=== PATIENT | male | born 1950 | race American Indian/Alaskan Native ===

== ENCOUNTER 2024-03-30 21:23 | Inpatient (IN) | payer BC, SELFPAY ==
[2024-03-30] VITALS (8 sets, daily range): BP systolic 125–155; BP diastolic 59–91; BMI 25.3; BMI 24.6
[2024-03-30 15:59] LABS: % Basophils 0.4 % (0-2); % Eosinophils 0.3 % (0-6); % Immature Granulocytes 0.2 % (0-0.5); % Lymphocytes 5.3 % (20.5-51.1); % Monocytes 2.4 % (1.7-9.3); % Neutrophils 91.4 % (42.2-75.2); Absolute Basophils 0.1 10^3/uL (0-0.2); Absolute Lymphocytes 0.7 10^3/uL (1.2-3.4); Absolute Monocytes 0.3 10^3/uL (0.1-0.6); Absolute Neutrophils 12.5 10^3/uL (1.4-6.5); Hematocrit 41.4 % (39.0-52.0); Hemoglobin 12.9 g/dL (13.0-18.0); Mean Corp Hgb Conc. 31.2 g/dL (33.0-37.0); Mean Corpuscular Hgb 26.2 pg (27.0-31.0); Mean Platelet Volume 9.7 fL (7.4-10.4); Nucleated Red Blood Cells % 0 % (-); Platelet Count 344 10^3/uL (130-400); Red Blood Cell Count 4.93 10^6/uL (4.70-6.10); White Blood Cell Count 13.6 10^3/uL (4.8-10.8)
[2024-03-30 16:32] LABS: ALT (SGPT) 21 U/L (0-50); AST (SGOT) 28 U/L (17-59); Albumin 4.2 g/dl (3.5-5.0); Alkaline Phosphatase 78 U/L (38-126); Blood Urea Nitrogen 20 mg/dl (9-20); Calcium 9.5 mg/dl (8.4-10.2); Carbon Dioxide 27 mmol/L (22-30); Chloride 100 mmol/L (98-107); Glucose 172 mg/dl (70-99); Potassium 4.1 mmol/L (3.5-5.1); Sodium 138 mmol/L (135-145); Total Bilirubin 0.4 mg/dl (0.2-1.3); Total Protein 8.6 g/dl (6.3-8.2); eGFR > 60.00
--- NOTE | 2024-03-30 17:22 | ED.GENMED ---
History of Present Illness
General
Chief Complaint: Breathing Problem
Source: patient and family
Exam Limitations: none
Time Seen by Provider: 03/30/24 16:59
Nursing documentation reviewed up to this point in time: agreed with
History of Present Illness
History of Present Illness:
Pleasant 73-year-old male presents with acute on chronic lung issues. On , he stated that he felt feverish with chills. 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
because he was too weak. He went to [facility] to get x-rays and blood work but left frustrated with neither. They were unable to accommodate him. Monday night they went to a green party but had to leave early because patient was
having difficulty walking. Patient follows with [facility] pulmonology who suspects that he had an asbestos exposure resulting in left-sided pulmonary issues. He is on an oxygen concentrator at night, that he paid $3500 for
[id number] when he was unable to get a prescription from his physicians. Patient was started on Levaquin. He has increased his oxygen concentrator to 4 L in an attempt to help with his breathing. He does report having a productive cough.
Patient denies chest pain or shortness of breath while at rest.
Vital signs are stable. Patient not hypoxic
Nursing note reviewed. I agree with nursing documentation up to this point in time.
Home Meds and allergies reviewed.
NUMBER AND COMPLEXITY OF PROBLEMS ADDRESSED AT THE ENCOUNTER
� Chronic conditions affecting care: Left-sided chronic lung disease
� Acute Exacerbation and/or Progression of Chronic Illness: Exacerbation of lung disease
� Differential Diagnosis includes: Pneumonia, pulmonary embolus, CHF exacerbation
AMOUNT AND/OR COMPLEXITY OF DATA TO BE REVIEWED AND ANALYZED
I performed an independent evaluation of the following and my interpretation is:
EKG:
CT:
X-rays: Similar in appearance to previous x-ray from 2013. Left-sided chronic changes.
Ultrasound:
Laboratory Studies: 13.6 white blood cell count.
Other:
Review of other/old records: Outpatient discharge packet from 10/09/2012
Clinical information was obtained by an independent historian:
Prescriptions/Medications Considered but not given:
Further testing considered but not performed:
RISK OF COMPLICATIONS AND/OR MORBIDITY OR MORTALITY OF PATIENT MANAGEMENT
Social determinants of health affecting care: Good Social Support present at the bedside
Discussion with other providers:
Escalation of care including admission/observation vs risk of discharge considered:
CRITICAL CARE NOTE:
Total Time (exclusive of procedures):
Update:
Past History
Past History
ED Past Medical History: Asthma and HTN
ED Past Surgical History: None
Social History
Tobacco: Non-smoker
Personal:
Living: with family
Employment: Employed
Family History
Family History: Negative Early CAD
Phy Exam
General Physical Exam
General Presentation: well appearing and no apparent distress
General Skin: warm and dry
General Habitus: normal
General Mental: alert
General Hydration: appears well hydrated
ENT Exam
ENT Exam: EOMI, pharynx normal, neck supple and normocephalic
Eye Exam
Eye Exam: PERRL, cornea clear and conjunctiva normal
Cardiovascular Exam
Cardiovascular Exam: regular rate/rhythm, no edema, no murmur and normal peripheral pulses
Pulmonary Exam
Pulmonary Exam: lungs clear, no rales, no crackles, no rhonchi, no stridor, no cough, generalized wheezing and respiratory distress
Oxygen Status: oxygen 4 liters via NC
Gastrointestinal Exam
Gastrointestinal Exam: normal bowel sounds, non tender, soft, no organomegaly, no pulsatile mass and non distended
Neurological Exam
Neurological Exam: alert, oriented x3, no motor deficits and speech normal
Musculoskeletal Exam
Musculoskeletal Exam: full ROM and no edema
Skin Exam
Skin Exam: normal color, warm/dry, no rash and no petechia
Psychiatric Exam
Psychiatric Exam: normal mood/affect
Scores
Heart Failure Risk
Heart Failure Risk Score: Not Applicable
Course
Orders/Labs/Results
Orders:
Orders
03/30/24 Breakfast
Regular
At Your Request: Full Participation
03/30/24 15:37
Chest [CR Chest - 2 Views ] Urgent
Comment:
Reason For Exam: shortness of breath
03/30/24 15:52
CMP [Comprehensive Metabolic Panel] Urgent
Complete Blood Count/With Diff Urgent
Glycohemoglobin (HgbA1c) Urgent
NT-proBNP Urgent
Comment: ADD ON- ON SERUM
03/30/24 17:23
Add On- LAB Urgent
Tests Added?: pro-bnp
03/30/24 17:36
Cardiac Monitoring- Treatment ONCE
EKG- Treatment ONCE
03/30/24 17:45
Electrocardiogram (*1) Q3H
Reason for Study: Chest Pain
03/30/24 18:00
Magnesium Urgent
PTT Urgent
Prothrombin Time Urgent
TSH Urgent
Troponin I Q3H
03/30/24 19:04
CT Chest Pe Study Urgent
Comment:
Reason For Exam: dyspnea, hx of asbestosis
03/30/24 19:57
Azithromycin 500 mg/250 ml [Zithromax Infusion] 500 mg in 250 ml IV NOW
CefTRIAXone [Rocephin] 1,000 mg IV NOW STA
03/30/24 20:12
Lactic Acid Q4H
Comment: CANCEL 2nd LACTIC ACID IF 1st LACTIC ACID IS LESS THAN 2
Procalcitonin Urgent
PCT Algorithmm Indication: Respiratory
Troponin I Q3H
Blood Culture Q30M
JARRETT Source: Blood/Venous
Specimen Description:
Blood Culture Q30M
JARRETT Source: Blood/Venous
Specimen Description:
03/30/24 20:19
Sterile Water [Sterile Water For Injection] 10 ml .ROUTE .[facility]
03/30/24 20:45
Electrocardiogram (*1) Q3H
Reason for Study: Chest Pain
03/30/24 21:02
Admit/Transfer Patient As Directed
Co-Sign Provider:
Level of Care: Inpatient admission
Assign to:: Medical/Surgical
Physician / Group: [facility]
Diagnosis: Bronchitis / Bronchiectasis
Reason for Hospitalization: Bronchitis / Bronchiectasis
Expected length of stay greater than two midnights?: Yes
ELOS- Estimated Length of Stay in days: 2
I certify the patient meets the requirements for IP care: Yes
03/30/24 21:05
Code Status As Directed
Resuscitation Status: Full Code
03/30/24 22:14
Acetaminophen [Tylenol] 650 mg PO Q4HPRN PRN
Albuterol Nebs [Ventolin Nebules] 2.5 mg INH R Q4HPRN PRN
03/30/24 22:14
Activity As Directed
Activity Level: Ambulate
With Assistance
Bladder Scan As Directed
Follow Bladder Retention/Intermittent Cath Algorithm?: Yes
PRN if no void in __ hours: 6
Frequency: Per Retention Algorithm
If Bladder Scan Result >: 400
then:: Straight cath
I/O [Intake/ Output] As Directed
Frequency: Per unit guidelines
Straight Cath As Directed
Frequency: Per Retention Algorithm
Additional Instructions: straight cath as needed per acute urinary retention algorithm for 24 hrs
Additional Instructions: for bladder scan greater than 400 mL
Vital Signs As Directed
Frequency: Per unit guidelines
Weight As Directed
Frequency: Daily
Chest PT [Rx Chest Pt] [RESP] Routine
Special Instructions: BID
Oxygen Therapy [O2 Therapy] [RESP] Routine
Titrate/Wean O2 to maintain O2 sat greater than (%): 94
DX Deep Vein Thrombosis Video Routine
03/31/24 00:00
Dexamethasone Sod Phosphate [Decadron] 4 mg IV Q8
LevoFLOXacin 750 MG/150 ML [Levaquin] 750 mg in 150 ml IV Q24H
03/31/24 06:00
Basic Metabolic Panel IN AM
Complete Blood Count/No Diff IN AM
03/31/24 08:00
Ascorbic Acid [Vitamin C] 250 mg PO DAILY
Cetirizine HCl [Zyrtec] 10 mg PO DAILY
Hydrochlorothiazide [Oretic] 25 mg PO DAILY
Ipratropium/Albuterol Sulfate [Duoneb] 3 ml INH R QID
Valsartan [Diovan] 320 mg PO DAILY
mometasone 1 spray NASAL BID
03/31/24 18:00
Enoxaparin Sodium [Lovenox] 40 mg SC QPM
Montelukast Sodium [Singulair] 10 mg PO QPM
Abnormal Lab Results
03/30/24 03/30/24
15:52 18:00
WBC 13.6 H 10^3/uL
(4.8-10.8)
Hgb 12.9 L g/dL
(13.0-18.0)
MCH 26.2 L pg
(27.0-31.0)
MCHC 31.2 L g/dL
(33.0-37.0)
RDW 15.0 H %
(11.5-14.5)
Absolute Neuts (auto) 12.5 H 10^3/uL
(1.4-6.5)
Absolute Lymphs (auto) 0.7 L 10^3/uL
(1.2-3.4)
Neutrophils % 91.4 H %
(42.2-75.2)
Lymphocytes % 5.3 L %
(20.5-51.1)
APTT 37.9 H Sec
(23.4-35.0)
Glucose 172 H mg/dl
(70-99)
Total Protein 8.6 H g/dl
(6.3-8.2)
03/30/24 15:52
03/30/24 15:52
Vital Signs
Initial and Last Documented VS:
Initial Vital Signs
Temp Pulse Resp BP Pulse Ox
97.9 F 111 18 153/83 95
03/30/24 15:24 03/30/24 15:24 03/30/24 15:24 03/30/24 15:24 03/30/24 15:24
Last Documented Vital Signs
Temp Pulse Resp BP Pulse Ox
98.3 F 94 20 154/91 98
03/30/24 22:15 03/30/24 22:15 03/30/24 22:15 03/30/24 22:15 03/30/24 23:00
*Radiology
Radiology exam reviewed: radiology read reviewed
*EKG
Interpreted by ED Provider?: Yes
EKG Intrepretation Date: 03/30/24
Interpretation: normal
Rate: normal
Rhythm: sinus and sinus arrhythmia
Logan: normal axis
QRS Pattern: normal QRS
Ischemia: no ischemia
*Human Resources Operations Specialist Interpretation
Rate: normal
Interpretation: normal
*Critical Care Note
Total Time (30-74mins, 75-104mins- exclusive of procedures): Not Applicable
ED Attending Note
-
Portions of this chart may have been created with voice recognition software.� Occasional wrong word or��sound alike� substitutions may have occurred due to the inherent limitations of voice recognition software.
Discharge Plan
Departure
Patient Disposition: Admit
Date of Disposition: 03/30/24
Time of Disposition: 20:02
Admit to: Telemetry
Presentation/result/management discussed w/ accepting MD/DO: Hospitalist
Condition: Good
Discharge Problem:
Acute dyspnea, Pneumonia
Interventions
Interventions:
*Risk Screen - Suicide Last Done: 03/30/24 17:33
*General Assessment Last Done: 03/30/24 17:33
*Neglect/Abuse Screening Last Done: 03/30/24 17:33
ED- Fall Risk Assessment Last Done: 03/30/24 17:33
*ED COVID-19 Vaccine History Last Done: 03/30/24 17:33
*Nursing Disposition Last Done: 03/30/24 22:04
ED- Cardiac Assessment Last Done: 03/30/24 17:33
ED- Pulmonary Assessment Last Done: 03/30/24 17:33
Discharge Date and Time
Discharge Date/Time: 03/30/24 22:05
[2024-03-30 18:20] LABS: INR 1.12; PT 14.2 Sec (11.4-14.6)
[2024-03-30 18:21] LABS: APTT 37.9 Sec (23.4-35.0)
[2024-03-30 18:33] LABS: Troponin I < 0.012 ng/ml
[2024-03-30 18:51] LABS: TSH 0.55 uIU/ml (0.47-4.68)
[2024-03-30] MEDS: ROCEPHIN 1000 MG IV (20:23)
[2024-03-30] MEDS: ZITHROMAX INFUSION 250 IV (20:29)
[2024-03-30 20:48] LABS: Troponin I < 0.012 ng/ml
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
[2024-03-30 21:15] LABS: Procalcitonin < 0.05 ng/ml (0.0-0.25)
[2024-03-30] MEDS: DECADRON 4 MG IV (22:59)
[2024-03-30] MEDS: LEVAQUIN 150 IV (23:04)
--- NOTE | 2024-03-30 23:30 | PTCARENOTE ---
pt arrived from ed walked into room, came up on 2 L NC. wears only at HS. pt aaox3, VSS, see MAR and assessment for further details. call garcia within reach.
[2024-03-31] MEDS: VENTOLIN NEBULES 2.5 MG INH (02:18)
[2024-03-31 06:00] VITALS: BMI 24.6
[2024-03-31 06:41] LABS: Hemoglobin 12.2 g/dL (13.0-18.0); Mean Corp Hgb Conc. 32.1 g/dL (33.0-37.0); Mean Corpuscular Hgb 26.2 pg (27.0-31.0); Mean Corpuscular Volume 81.7 fL (80.0-94.0); Mean Platelet Volume 9.5 fL (7.4-10.4); Platelet Count 356 10^3/uL (130-400); Red Blood Cell Count 4.65 10^6/uL (4.70-6.10); Red Cell Dist. Width 15.1 % (11.5-14.5); White Blood Cell Count 8.6 10^3/uL (4.8-10.8)
[2024-03-31 07:00] VITALS: BP 128/71
[2024-03-31 07:11] LABS: Blood Urea Nitrogen 16 mg/dl (9-20); Calcium 9.3 mg/dl (8.4-10.2); Carbon Dioxide 32 mmol/L (22-30); Chloride 100 mmol/L (98-107); Estimated Creatinine Clearance 80 ml/min; Glucose 128 mg/dl (70-99); Potassium 4.6 mmol/L (3.5-5.1); Sodium 141 mmol/L (135-145); eGFR > 60.00
[2024-03-31] MEDS: DUONEB 3 ML INH ×4 (07:34→20:35)
--- NOTE | 2024-03-31 08:09 | W.PN.HOSP.TC ---
Today's Communication/Plan
-
see bold
Assessment / Plan
Assessment / Plan
73y M with PMH significant for chronic lung disease who presents to ED complaining of worsening cough, dyspnea and subjective fevers / chills.
Gen: NAD, AAOx3.
Eyes: EOMI, PERRLA, no scleral icterus.
Neck: supple.
CV: RRR, +S1/S2, no m/r/g.
Resp: Bilateral wheezes and faint Velcro rales
Abd: +BS, soft, NT, ND
Skin: No rashes.
Neuro: CN 2-12 intact, non-focal.
Psych: Normal mood and affect.
CTA chest: No evidence of central pulmonary embolism. Unfortunately, small bilateral peripheral lower lobe pulmonary emboli cannot be excluded on the basis of this study at least in part due to the prominent interstitial changes described below.
Calcified pleural plaques again seen with some progression in comparison to relative remote prior study. Significant progression of predominantly widespread bilateral prominent interstitial markings in comparison to relative remote prior study.
Unfortunately, chronic interstitial changes cannot be differentiated from acute upon chronic interstitial changes.
Opacity in the right lower lobe and larger opacity in the left lower lobe which could represent atelectasis, cannot exclude pneumonia, particularly in the left lower lobe.
Acute Bronchitis / Bronchiectasis
Acute Exacerbation of Allergic Asthma
Asbestosis
Pulmonary Nodules
Interstitial Lung Disease
-CT chest above and notable for interstitial changes
-stop levofloxacin with NEG Procal (resume home Azithro M/W/F)
-symptoms do seem to have been triggered by mulch exposure based on patient history
-IV Decadron
-Nebs ATC and PRN.
-Continue Singulair and Zyrtec.
-c/s pulm
Essential Hypertension: cont ARB/HCTZ
FULL/Lovenox
Anticipated Discharge: 24 - 48 hours
Subjective/Interval History
-
Date of Service: March 31, 2024
Objective Data
-
Labs:
Laboratory Results
03/31/24
06:20
WBC 8.6
Hgb 12.2 L
Hct 38.0 L
Plt Count 356
Sodium 141
Potassium 4.6
Chloride 100
Carbon Dioxide 32 H
BUN 16
Creatinine 0.8
Glucose 128 H
Calcium 9.3
Vital Signs:
Vital Signs
Temp Pulse Resp BP Pulse Ox
97.7 F 80 18 128/71 99
03/31/24 07:00 03/31/24 07:40 03/31/24 07:40 03/31/24 07:00 03/31/24 07:40
I&O
03/30/24 03/31/24 04/01/24
06:59 06:59 06:59
Intake Total 480 / 480
Balance 480 / 480
[2024-03-31] MEDS: DIOVAN 320 MG PO (08:32)
[2024-03-31] MEDS: ZYRTEC 10 MG PO (08:33)
[2024-03-31] MEDS: ORETIC 25 MG PO (08:33)
[2024-03-31] MEDS: DECADRON 4 MG IV ×2 (08:34→17:08)
[2024-03-31] MEDS: FLUSH (NSS) 2 FLUSH IV (08:35)
[2024-03-31] MEDS: VITAMIN C 250 MG PO (09:00)
[2024-03-31 11:24] LABS: Glycohemoglobin (HgbA1c) 6.3 % (4.0-5.6)
--- NOTE | 2024-03-31 11:47 | CON.PUL ---
Consultation
Consultation Request
Date/Time Consultation Requested: 03/31/24
Date/Time Consultation Performed: 03/31/24
Performing Provider: Jacobo
Reason for Consultation: Bronchiectasis
Medical History
-
History of Present Illness:
Patient is a 73 year old M with PMH significant for bronchiectasis, asbestosis and chronic allergies/asthma who presents to ED complaining of worsening cough, SOB and chills x several days. Patient states that he is followed by [facility]
and by Allergy / Immunology. He was started on oral prednisone 10mg per day about 3 weeks ago for symptoms of allergies / asthma. He notes worsening cough, SOB than baseline. Patient contacted his Multi Slide Machine Tender and was prescribed levofloxacin
750mg daily as well as inhaled tobramycin (tobra was not started yet).
No prior records of recent imaging at . Last CT from 2009 in which he underwent bronchoscopy without infection.
Patient has home O2 concentrator and wears oxygen 2 lpm at night, only.
Past Medical History
Past Medical History: Other (see list below)
Social History
Tobacco: Non-smoker
Alcohol: None
Drug: None
Family History
Family History: Reviewed & Not Pertinent
Allergies / Home Medications
Allergies
Allergy/AdvReac Type Severity Reaction Status Date / Time
Penicillins Allergy Hives Verified 12/14/12 11:05
Sulfa (Sulfonamide Allergy Hives Verified 12/14/12 11:05
Antibiotics)
Home Medications
�Medication �Instructions �Recorded �Confirmed �Last Taken �Type
montelukast 10 mg tablet 10 mg PO QPM Lung/Breathing Issues 12/22/09 03/30/24 12/13/12 History
multivitamin with folic acid 400 1 tab PO HS Supplement 12/22/09 03/30/24 12/13/12 History
mcg tablet (Tab-A-Sabine)
albuterol sulfate 2.5 mg/3 mL 2.5 mg inhalation BID 03/30/24 03/30/24 Unknown History
(0.083 %) solution for nebulization Lung/Breathing Issues
ascorbic acid (vitamin C) 250 mg 250 mg PO DAILY Supplement 03/30/24 03/30/24 Unknown History
tablet (Vitamin C)
azithromycin 250 mg tablet 250 mg PO MOWEFR Infection 03/30/24 03/30/24 Unknown History
calcium acetate(phosphat bind) 667 667 mg PO DAILY Kidney Disease 03/30/24 03/30/24 Unknown History
mg tablet
cetirizine 10 mg tablet 10 mg PO DAILY Allergies 03/30/24 03/30/24 Unknown History
cholecalciferol (vitamin D3) 125 125 mcg PO DAILY Supplement 03/30/24 03/30/24 Unknown History
mcg (5,000 unit) capsule
fluticasone propionate 230 2 puff inhalation BID 03/30/24 03/30/24 Unknown History
mcg-salmeterol 21 mcg/actuation Lung/Breathing Issues
HFA inhaler (Advair HFA)
hydrochlorothiazide 25 mg tablet 25 mg PO DAILY Blood Pressure 03/30/24 03/30/24 Unknown History
levofloxacin 750 mg tablet 750 mg PO DAILY Infection 03/30/24 03/30/24 Unknown History
mometasone 50 mcg/actuation nasal 1 spray intranasal BID Allergies 03/30/24 03/30/24 Unknown History
spray
omega-3 acid ethyl esters 1 gram 1 cap PO DAILY Heart 03/30/24 03/30/24 Unknown History
capsule (Lovaza) Disease/Condition
omeprazole 20 mg tablet,delayed 20 mg PO DAILY PRN GERD 03/30/24 03/30/24 Unknown History
release
prednisone 10 mg tablet 10 mg PO DAILY Anti-Inflammatory 03/30/24 03/30/24 Unknown History
tobramycin 1 spray intranasal BID Infection 03/30/24 03/30/24 Unknown History
valsartan 320 mg tablet 320 mg PO DAILY Blood Pressure 03/30/24 03/30/24 Unknown History
Review of Systems
-
History Source: Patient
All other systems: Negative unless noted
Vitals / Labs / Diagnostic Testing
Vital Signs
Temp Pulse Resp BP Pulse Ox
97.7 F 82 18 128/71 94
03/31/24 07:00 03/31/24 11:24 03/31/24 11:24 03/31/24 08:33 03/31/24 08:34
Lab Data
03/31/24 06:20
03/31/24 06:20
Laboratory Results
03/30/24
18:00
PT 14.2
INR 1.12
APTT 37.9 H
Diagnostic Testing:
Physical Exam
-
HEENT: Normocephalic, Anicteric and Moist Mucous Membranes
Cardiovascular: S1/S2 and Regular Rhythm
Respiratory: Rales and Non-Labored Respirations
GI: Soft, Non Distended and Non Tender
Neurology: Awake, Alert, Oriented, AO x 3 and No Motor Deficits
Skin: Warm, Dry and Good Color
General: Comfortable and Other (NAD)
Assessment
-
Patient is a 73 year old M with PMH significant for bronchiectasis, asbestosis and chronic allergies/asthma who presents to ED complaining of worsening cough, SOB and chills x several days. He was started on oral prednisone 10mg per day about 3
weeks ago for symptoms of allergies / asthma. He notes worsening cough, SOB than baseline. Patient contacted his Multi Slide Machine Tender and was prescribed levofloxacin 750mg daily as well as inhaled tobramycin (tobra was not started yet). CT showing
diffuse patchy infiltrates, TIB pattern. We are consulted for eval.
Abnormal CT scan
Acute on chronic SOB/cough
Mild leukocytosis
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
Chronic cough
Pleural plaque, asbestosis
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
Atelectasis s/p bronchoscopy 12/23/09: BAL was performed in RLL, negative cultures/+ rosalind
Neg for acid fast x 2
Chronic asthma, follows with Dr Elizabeth
Allergic rhinitis
Elevated immunoglobulin E
History of prostate carcinoma with radiation seeds
Plan
Hypoxemia noted on arrival, O2 dwight 89%, placed on O2
Patient has home O2 concentrator and wears oxygen 2 lpm at night, only--recommend outpatient sleep study
Home O2 evaluation eventually
Prior history of lung disease is noted including bronchiectasis, asthma/allergies
No prior records of recent imaging at . Last CT from 2009 in which he underwent bronchoscopy without infection.
Suspect patient has mucus impaction but unclear if there is infection
Had bronchoscopy for similar in 2009 which showed negative cultures
procal and proBNP negative
CXR/CT on this admission reviewed, but no recent comparisons available at [place]
We will request records
Difficult to determine chronicity of CT findings without recent imaging
For now, can obtain sputum culture
He is placed on IV steroids and azithro
Consideration for bronch but depending on records/what has been done at [place]
No prior ECHO records are available for review
Can resume home inhalers/nebs
Currently on vest BID
Will add acapella, Mucinex
Airway clearance reviewed
We will follow
Diagnostic Data
Chest X-Ray:
CT Scan:
CT Chest 03/30/24- No evidence of central pulmonary embolism. Unfortunately, small bilateral peripheral lower lobe pulmonary emboli cannot be excluded on the basis of this study at least in part due to the prominent interstitial changes described
below.
Calcified pleural plaques again seen with some progression in comparison to relative remote prior study.
Significant progression of predominantly widespread bilateral prominent interstitial markings in comparison to relative remote prior study. Unfortunately, chronic interstitial changes cannot be differentiated from acute upon chronic interstitial
changes.
Opacity in the right lower lobe and larger opacity in the left lower lobe which could represent atelectasis, cannot exclude pneumonia, particularly in the left lower lobe.
CT Chest 07/15/10- Impression: Slight improvement in aeration of the lung bases as described, incomplete clearing however.
Pleural calcifications with pleural thickening in the left lung base is similar to the previous exam, likely related to prior previous asbestos exposure. Minimal fatty infiltration of the liver.
CT Chest 12/28/09- Impression: No significant change in poorly defined mass-like opacity in the right lower lobe. This could represent a pulmonary malignancy. Consider PET/CT for additional evaluation. Pleural calcifications as described. There is
pleural thickening in the left base. Evidence for rounded atelectasis in the left lower lobe. These findings are likely related to previous asbestos exposure.
CT chest 12/22/09- The left hemithorax pleural plaques appear stable from prior examination. In the posteromedial base of the left lower lobe, there is a lobulated focus of increased density, measuring approximately 2.0 x 1.0 cm, and appears new
from prior examination. This may represent slight progression of pleuroparenchymal scarring, but a small focus of acute pneumonitis at this location is also possible. There is also a rounded area of parenchymal disease more superiorly in the
medial aspect of the left lower lobe, and could represent focal pneumonitis or atelectasis.
Of note, the consolidative airspace density in the right lower lobe is new from prior examination and is likely pneumonia. Given this right lower lobe finding, at least a portion of the findings in the left base that are new are probably from a
component of acute pneumonitis in the left lower lobe.
Of note, there is a small calcified pleural plaque in the posteromedial right lower lobe, which I did not initially appreciate. With bilateral calcified pleural plaques, the possibility of asbestos exposure is still entertained.
Echo:
PFT's:
Reports and relevant images were personally reviewed.
Total time spent on this consultation __75__ includes review of history, physical exam, medications, laboratory data, personal review of imaging, extensive review of outpatient records, discussion with care team and respiratory therapy.
--- NOTE | 2024-03-31 13:17 | PTCARENOTE ---
patient with +sob with exertion, since patient increasing ambulation coughing more and able to expectorate thick white sputum. eating well, vss, will continue to monitor.
[2024-03-31 15:00] VITALS: BP 108/68
--- NOTE | 2024-03-31 16:25 | CM ---
Reviewed chart. Spoke with patient to obtain information for assessment. Patient stated that he lives with his in a two story home with one step to enter. He described himself as independent with his ADLs and personal care as well as dressing
and bathing. He ambulates without device. 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 He drives and can get to all of his appointments.
He wears o2 at night. He stated that his o2 has not been working.
He had VN 3 years ago but does not recall the agency.
He has never been to a SNF.
Patient has a prescription plan and uses, [facility] for all of his medications.
His PCP is, Joel Juárez.
Patient does not feel that he will have any needs for CM dept upon discharge .
Plan: Case management will continue to follow and assist with discharge planning. Patient would like to return home with his when medically cleared. Will need to explore o2 needs.
[2024-03-31] MEDS: SINGULAIR 10 MG PO (17:07)
[2024-03-31] MEDS: MUCINEX 1200 MG PO (20:57)
[2024-03-31] MEDS: PROTONIX 40 MG PO (21:31)
[2024-03-31 22:24] VITALS: BP 124/68
[2024-04-01] MEDS: DECADRON 4 MG IV ×4 (00:07→23:09)
[2024-04-01] MEDS: FLUSH (NSS) 2 FLUSH IV (00:08)
[2024-04-01] MEDS: TESSALON PERLES 200 MG PO (03:04)
[2024-04-01 06:00] VITALS: BMI 25.0
[2024-04-01] MEDS: ANESTHETIC LOZENGE 1 LOZENGE PO (06:04)
[2024-04-01 07:00] VITALS: BP 125/65
[2024-04-01] MEDS: DUONEB 3 ML INH ×3 (07:29→15:49)
[2024-04-01] MEDS: MUCINEX 1200 MG PO ×2 (08:10→22:09)
[2024-04-01] MEDS: VITAMIN C 250 MG PO (08:14)
[2024-04-01] MEDS: ZYRTEC 10 MG PO (08:14)
[2024-04-01] MEDS: DIOVAN 320 MG PO (08:14)
[2024-04-01] MEDS: ORETIC 25 MG PO (08:14)
[2024-04-01] MEDS: ZITHROMAX 250 MG PO (08:15)
--- NOTE | 2024-04-01 10:47 | CM ---
Pt is on oxygen 3 liter Pox 100%.
Spoke with Loyd [phone] . She said that she did not want VN for .
said they bought a Inogen from [employer] [phone] and it is broken . Call [facility] spoke with Myesha asked her to call and get a replacement sent to him.
Will need a Home oxygen test.
At this time he only uses oxygen at night.
PLAN Home no needs Watch for oxygen needs .
--- NOTE | 2024-04-01 12:23 | W.PN.PUL3 ---
Today's Communication / Plan
-
Start antibiotics with aztreonam + doxycycline
Check infectious workup
Pulmonary toilet
Up OOB as tolerated
Obtain outpatient medical records from [place]
Patient with follow-up with pulmonary + ENT at [place] once he is discharged
Ambulatory pulse oximetry prior to discharge
Assessment
-
Patient is a 73 year old M with PMH significant for bronchiectasis, asbestosis and chronic allergies/asthma who presents to ED complaining of worsening cough, SOB and chills x several days. He was started on oral prednisone 10mg per day about 3
weeks ago for symptoms of allergies / asthma. He notes worsening cough, SOB than baseline. Patient contacted his Water Plant Pump Operator and was prescribed levofloxacin 750mg daily as well as inhaled tobramycin (tobra was not started yet). CT showing
diffuse patchy infiltrates, TIB pattern. We are consulted for eval.
Impression:
Abnormal CT scan with multifocal tree-in-bud nodular opacities and consolidation in the posterolateral RUL + LLL with mucoid impaction as well in the bilateral lower lobes due to multifocal CAP
Acute respiratory failure with hypoxia due to above
Acute on chronic SOB/cough
Mild leukocytosis
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
Chronic cough
Pulmonary bronchiectasis who follows with pulmonary at [facility]
Pleural plaque due to asbestos exposure
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
Atelectasis s/p bronchoscopy 12/23/09: BAL was performed in RLL, negative cultures/+ rosalind
Neg for acid fast x 2
Chronic asthma, follows with Dr Elizabeth
Allergic rhinitis
Elevated immunoglobulin E
Chronic rhinitis follows with ENT at [place] (Dr. Spicer)
History of prostate carcinoma with radiation seeds
Plan
Hypoxemia noted on arrival, O2 dwight 89%, placed on O2
Titrate O2 dose to maintain SpO2 >90-94%
Patient has home O2 concentrator and wears oxygen 2 lpm at night only--recommend outpatient sleep study
Home O2 evaluation eventually prior to discharge
Prior history of lung disease is noted including bronchiectasis, asthma/allergies
No prior records of recent imaging at since 2011. Last CT from 2009 in which he underwent bronchoscopy without infection.
Patient has lower lobe predominant mucus impaction and given the multifocal tree-in-bud nodular opacities with dyspnea on exertion and productive cough, he clinically has pneumonia
Had bronchoscopy in 2009 which showed negative cultures
procal and proBNP negative
CXR/CT on this admission reviewed, but no recent comparisons available at [place]
We will request records
Difficult to determine chronicity of CT findings without recent imaging
Will treat for acute CAP --> he has already received ceftriaxone x 1 day, azithromycin X 2 days and Levaquin X 2 days --> considering patient has had a reaction of keloids + hives to penicillin, I will start Aztreonam and doxycycline --> plan for
7-10 days total; hold zithromax TIW for now until doxy has completed, then ok to restart
Follow-up sputum culture and blood cultures; check urine antigens for Legionella and strep pneumonia
He is on IV steroids with Decadron 4 mg IV q8hr --> wean as tolerated
Consideration for bronch but depending on records/what has been done at [place] --> for now patient is doing well, is stable with his degree of shortness of breath, and with improving levels of oxygen requirements, hence there is no indication
currently for bronchoscopy
No prior ECHO records are available for review
Resume home inhalers/nebs
Currently on vest BID
Continue acapella, Mucinex
Airway clearance reviewed
We will follow
Total time spent today was 35 minutes for this encounter. Time includes reviewing laboratory test/imaging results, reviewing pertinent medical records, obtaining and reviewing medical history, performing an appropriate exam, ordering medications,
tests and procedures. Time also includes documentation of this encounter, coordinating patient care and communicating with other healthcare professionals. Total time does not include separately billed tests performed on this date of service.
Diagnostic Data
Chest X-Ray:
CT Scan:
CT Chest 03/30/24- No evidence of central pulmonary embolism. Unfortunately, small bilateral peripheral lower lobe pulmonary emboli cannot be excluded on the basis of this study at least in part due to the prominent interstitial changes described
below.
Calcified pleural plaques again seen with some progression in comparison to relative remote prior study.
Significant progression of predominantly widespread bilateral prominent interstitial markings in comparison to relative remote prior study. Unfortunately, chronic interstitial changes cannot be differentiated from acute upon chronic interstitial
changes.
Opacity in the right lower lobe and larger opacity in the left lower lobe which could represent atelectasis, cannot exclude pneumonia, particularly in the left lower lobe.
CT Chest 07/15/10- Impression: Slight improvement in aeration of the lung bases as described, incomplete clearing however.
Pleural calcifications with pleural thickening in the left lung base is similar to the previous exam, likely related to prior previous asbestos exposure. Minimal fatty infiltration of the liver.
CT Chest 12/28/09- Impression: No significant change in poorly defined mass-like opacity in the right lower lobe. This could represent a pulmonary malignancy. Consider PET/CT for additional evaluation. Pleural calcifications as described. There is
pleural thickening in the left base. Evidence for rounded atelectasis in the left lower lobe. These findings are likely related to previous asbestos exposure.
CT chest 12/22/09- The left hemithorax pleural plaques appear stable from prior examination. In the posteromedial base of the left lower lobe, there is a lobulated focus of increased density, measuring approximately 2.0 x 1.0 cm, and appears new
from prior examination. This may represent slight progression of pleuroparenchymal scarring, but a small focus of acute pneumonitis at this location is also possible. There is also a rounded area of parenchymal disease more superiorly in the
medial aspect of the left lower lobe, and could represent focal pneumonitis or atelectasis.
Of note, the consolidative airspace density in the right lower lobe is new from prior examination and is likely pneumonia. Given this right lower lobe finding, at least a portion of the findings in the left base that are new are probably from a
component of acute pneumonitis in the left lower lobe.
Of note, there is a small calcified pleural plaque in the posteromedial right lower lobe, which I did not initially appreciate. With bilateral calcified pleural plaques, the possibility of asbestos exposure is still entertained.
Echo:
PFT's:
Reports and relevant images were personally reviewed.
Subjective Data
-
Date of Service:
Date of Service: April 01, 2024
Chief Complaint: Pulmonary Follow Up
Subjective:
Patient seen today. at bedside. Patient currently on 1 L/min nasal cannula and he is breathing comfortably. Afebrile overnight. He does not feel like he is getting worse. He is bringing up his phlegm okay at times. He denies chest pain,
headache, fevers or chills.
Review of Systems
General: Other (Negative unless mentioned above)
Objective Data
Data Reviewed
Vital Signs / I&O / Oxygen:
Vital Signs
Temp Pulse Resp BP Pulse Ox
97.7 F 82 16 125/65 98
04/01/24 07:00 04/01/24 08:14 04/01/24 11:23 04/01/24 08:14 04/01/24 11:23
Intake and Output
03/31/24 04/01/24 04/02/24
06:59 06:59 06:59
Intake Total 480 / 480 1979
Balance 480 / 480 1979
SaO2 98
Nasal Cannula flow liters per 2
minute
Physical Exam
General: Respiratory Distress (negative) and Comfortable
Cardiovascular: S1-S2 and Peripheral Edema (negative)
Respiratory: Wheeze (Negative), Crackles (Bilateral), Rhonchi (Bilateral) and Accessory Resp Muscle Use (negative)
GI: Soft, Non Distended, Non Tender and Normal Bowel Sounds
Neurology: AO x 3 and Tremors (negative)
Skin: Warm, Dry and Jaundice (negative)
Labs/Micro/Reports
Lab Data
03/31/24 06:20
03/31/24 06:20
Microbiology
03/30/24 20:12 Blood/Venous Blood Culture - Preliminary
No Growth in 24 hours- Final report to follow
03/30/24 20:12 Blood/Venous Blood Culture - Preliminary
No Growth in 24 hours- Final report to follow
--- NOTE | 2024-04-01 14:11 | W.PN.HOSP.TC ---
Today's Communication/Plan
-
Wean oxygen as tolerated
Add antibiotics back-defer to pulmonary regarding the choice-discussed
Continue nebulizer treatments and mucolytic's
Await sputum culture
Assessment / Plan
Assessment / Plan
73y M with PMH significant for chronic lung disease who presents to ED complaining of worsening cough, dyspnea and subjective fevers / chills.
CTA chest: No evidence of central pulmonary embolism. Unfortunately, small bilateral peripheral lower lobe pulmonary emboli cannot be excluded on the basis of this study at least in part due to the prominent interstitial changes described below.
Calcified pleural plaques again seen with some progression in comparison to relative remote prior study. Significant progression of predominantly widespread bilateral prominent interstitial markings in comparison to relative remote prior study.
Unfortunately, chronic interstitial changes cannot be differentiated from acute upon chronic interstitial changes.
Opacity in the right lower lobe and larger opacity in the left lower lobe which could represent atelectasis, cannot exclude pneumonia, particularly in the left lower lobe.
CVS: S1-S2 normal
Chest: few scattered short wheezes
Abdomen: Soft, NT / Bowel sounds present
Extremities: No edema, normal pulses
CAREG[employer] HOME: Non focal exam
#Acute Bronchitis / Bronchiectasis
Acute Exacerbation of Allergic Asthma
Asbestosis
Pulmonary Nodules
Interstitial Lung Disease
Acute Hypoxic Resp insufficiency.
-CT chest above and notable for interstitial changes
-I would treat him with a course of AB
-Symptoms do seem to have been triggered by mulch exposure based on patient history
-IV Decadron
-Nebs ATC and PRN.
-Continue Singulair and Zyrtec.
-Pulm Consulted and following
#Nocturnal Hypoxia- Pt bought a portable concentrator on his own. Discussed with the patient to get sleep study done as outpatient.
#Essential Hypertension: cont ARB/HCTZ
#History of prostate carcinoma with radiation seeds.
#Remote smoking history , Smoked sparingly and quit 40 years ago
#FULL code
#DVT Prophylaxis-Lovenox
D/W Pulm
Anticipated Discharge: Within 24 hours
Subjective/Interval History
-
Date of Service: April 01, 2024
Objective Data
-
Vital Signs:
Vital Signs
Temp Pulse Resp BP Pulse Ox
97.7 F 82 16 125/65 98
04/01/24 07:00 04/01/24 08:14 04/01/24 11:23 04/01/24 08:14 04/01/24 11:23
I&O
03/31/24 04/01/24 04/02/24
06:59 06:59 06:59
Intake Total 480 / 480 1979
Balance 480 / 480 1979
[2024-04-01 15:00] VITALS: BP 129/66
[2024-04-01 16:24] LABS: COVID-19 Antigen Negative (Negative)
[2024-04-01] MEDS: SINGULAIR 10 MG PO (16:51)
[2024-04-01 18:48] LABS: Hepatitis C Antibody Negative (Negative)
[2024-04-01] MEDS: ADVAIR HFA 230/21 MCG INHALER 2 PUFF INH (20:05)
[2024-04-01] MEDS: VIBRAMYCIN 260 MG IV (22:12)
[2024-04-01] MEDS: AZACTAM 2000 MG IV (22:13)
[2024-04-01] MEDS: STERILE WATER FOR INJECTION 10 ML IV (22:13)
[2024-04-01 23:00] VITALS: BP 137/80
[2024-04-02] MEDS: AZACTAM 2000 MG IV ×3 (05:10→21:12)
[2024-04-02] MEDS: FLUSH (NSS) 2 FLUSH IV ×2 (05:11→08:42)
[2024-04-02] MEDS: STERILE WATER FOR INJECTION 10 ML IV ×3 (05:11→21:12)
[2024-04-02 06:00] VITALS: BMI 25.0
[2024-04-02 07:00] VITALS: BP 160/83
[2024-04-02 07:51] LABS: Procalcitonin < 0.05 ng/ml (0.0-0.25)
[2024-04-02] MEDS: DUONEB INH (07:58)
[2024-04-02] MEDS: ADVAIR HFA 230/21 MCG INHALER 2 PUFF INH ×2 (07:58→21:16)
[2024-04-02] MEDS: DIOVAN 320 MG PO (08:40)
[2024-04-02] MEDS: MUCINEX 1200 MG PO ×2 (08:41→21:11)
[2024-04-02] MEDS: ORETIC 25 MG PO (08:41)
[2024-04-02] MEDS: DECADRON 4 MG IV ×2 (08:41→21:12)
[2024-04-02] MEDS: ZYRTEC 10 MG PO (08:41)
[2024-04-02] MEDS: VITAMIN C 250 MG PO (08:41)
[2024-04-02] MEDS: VIBRAMYCIN 260 MG IV ×2 (08:44→22:35)
[2024-04-02] MEDS: PROTONIX 40 MG PO (09:48)
--- NOTE | 2024-04-02 10:59 | W.PN.PUL3 ---
Today's Communication / Plan
-
Continue antibiotics with aztreonam + doxycycline
New onset atrial fibrillation � defer management to cardiology
Continue with systemic steroids and wean as tolerated
Follow-up infectious workup
Pulmonary toilet
Up OOB as tolerated
Patient with follow-up with pulmonary + ENT at [facility] once he is discharged. Otherwise our office will be available for him if he wishes to see us
Ambulatory pulse oximetry prior to discharge
Assessment
-
Patient is a 73 year old M with PMH significant for bronchiectasis, asbestosis and chronic allergies/asthma who presents to ED complaining of worsening cough, SOB and chills x several days. He was started on oral prednisone 10mg per day about 3
weeks ago for symptoms of allergies / asthma. He notes worsening cough, SOB than baseline. Patient contacted his Molasses And Caramel Operator and was prescribed levofloxacin 750mg daily as well as inhaled tobramycin (tobra was not started yet). CT showing
diffuse patchy infiltrates, TIB pattern. We are consulted for eval.
Impression:
Abnormal CT scan with multifocal tree-in-bud nodular opacities and consolidation in the posterolateral RUL + LLL with mucoid impaction as well in the bilateral lower lobes due to multifocal CAP with history of pulmonary bronchiectasis
Acute respiratory failure with hypoxia due to above
Acute on chronic SOB/cough consistent with acute COPD exacerbation
Mild leukocytosis
New onset atrial fibrillation now on Cardizem drip
Nocturnal hypoxia on 2 L/min with sleep
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
- Chronic cough
- Pulmonary bronchiectasis who follows with pulmonary at [facility] with Dr. Aparicio on vest therapy + nebulized 3% hypertonic saline -unknown etiology for bronchiectasis with immunodeficiency, ABPA and collagen vascular disease ruled out.
Other DDx includes AAT deficiency, aspiration and postinfectious bronchiectasis
- History of Pseudomonas aeruginosa seen on bronchoscopy performed in August 2023 + 05/2019 awaiting to be started on nebulized tobramycin by outpatient grout pump operator
- Pleural plaque due to asbestos exposure
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
- Atelectasis s/p bronchoscopy 12/23/09: BAL was performed in RLL, negative cultures/+ rosalind
Neg for acid fast x 2
- Severe restrictive lung disease with FVC 39% predicted on PFT from June 2023
- Severe COPD with moderate gas exchange capacity defect (post BD FEV1: 0.88 L / 32% predicted) on azithromycin 250mg TIW + chronic prednisone + Advair HFA 230mcg 2 puffs BID
- Chronic asthma, follows with Dr Elizabeth
- Allergic rhinitis
Elevated immunoglobulin E
- Chronic rhinosinusitis follows with ENT at [facility] (Dr. Spicer) -uses sinus lavages with tobramycin in the lavage
- History of prostate carcinoma with radiation seeds
Plan
Hypoxemia noted on arrival, O2 dwight 89%, placed on O2
Titrate O2 dose to maintain SpO2 >88-94% --> he is now on room air breathing comfortably
Patient has home O2 concentrator and wears oxygen 2 lpm at night only--recommend outpatient sleep study
Home O2 evaluation eventually prior to discharge
Prior history of lung disease is noted including bronchiectasis, asthma/allergies and chronic rhinosinusitis on sinus lavage
No prior records of recent imaging at since 2011. Last CT from 2009 in which he underwent bronchoscopy without infection.
Medical records obtained from the last office visit note from patient's grout pump operator, Dr. Aparicio and [facility].
Patient has lower lobe predominant mucus impaction and given the multifocal tree-in-bud nodular opacities with dyspnea on exertion and productive cough, he clinically has pneumonia, and these tree-in-bud nodular opacities are new compared to last CT
chest in 05/2019 done at [facility]
Had bronchoscopy in 2009 which showed negative cultures
He has evidence of Pseudomonas aeruginosa from multiple bronchoscopies including 05/2019 and 08/2023 and was post to be started on nebulized tobramycin as an outpatient
procal and proBNP negative
CXR/CT on this admission reviewed --> tree-in-bud nodular opacities are new compared to report obtained from last CT chest done at [facility] in 2019
Will treat for acute CAP --> he has already received ceftriaxone x 1 day, azithromycin X 2 days and Levaquin X 2 days --> considering patient has had a reaction of keloids + hives to penicillin and also has a history of chronic bronchiectasis with
Pseudomonas aeruginosa seen on bronchoscopy, continue Aztreonam and doxycycline (started 04/01) --> plan for 7-10 days total; hold zithromax TIW for now until doxy has completed, then ok to restart TIW dosing
Follow-up sputum culture and blood cultures; check urine antigens for Legionella and strep pneumonia
He is on IV steroids with Decadron 4 mg IV q8hr --> wean as tolerated (wean down today to 4mg IV q12hr)
Consideration for bronch but depending on records/what has been done at [facility] --> for now patient is doing well, is stable with his degree of shortness of breath, and with improving levels of oxygen requirements, hence there is no indication
currently for bronchoscopy
No prior ECHO records are available for review
Resume home inhalers/nebs
Currently on vest BID
Continue acapella, Mucinex
Airway clearance reviewed
Defer atrial fibrillation management to cardiology; if patient starts amiodarone then he should obtain surveillance spirometry to assure his restrictive defect does not worsen; I am assuming he will follow-up with his grout pump operator at the [facility] following discharge, otherwise he can transition his care to see us
We will follow
Total time spent today was 35 minutes for this encounter. Time includes reviewing laboratory test/imaging results, reviewing pertinent medical records, obtaining and reviewing medical history, performing an appropriate exam, ordering medications,
tests and procedures. Time also includes documentation of this encounter, coordinating patient care and communicating with other healthcare professionals. Total time does not include separately billed tests performed on this date of service.
Diagnostic Data
CT Scan:
CT Chest 03/30/24- No evidence of central pulmonary embolism. Unfortunately, small bilateral peripheral lower lobe pulmonary emboli cannot be excluded on the basis of this study at least in part due to the prominent interstitial changes described
below.
Calcified pleural plaques again seen with some progression in comparison to relative remote prior study.
Significant progression of predominantly widespread bilateral prominent interstitial markings in comparison to relative remote prior study. Unfortunately, chronic interstitial changes cannot be differentiated from acute upon chronic interstitial
changes.
Opacity in the right lower lobe and larger opacity in the left lower lobe which could represent atelectasis, cannot exclude pneumonia, particularly in the left lower lobe.
CT Chest 07/15/10- Impression: Slight improvement in aeration of the lung bases as described, incomplete clearing however.
Pleural calcifications with pleural thickening in the left lung base is similar to the previous exam, likely related to prior previous asbestos exposure. Minimal fatty infiltration of the liver.
CT Chest 12/28/09- Impression: No significant change in poorly defined mass-like opacity in the right lower lobe. This could represent a pulmonary malignancy. Consider PET/CT for additional evaluation. Pleural calcifications as described. There is
pleural thickening in the left base. Evidence for rounded atelectasis in the left lower lobe. These findings are likely related to previous asbestos exposure.
CT chest 12/22/09- The left hemithorax pleural plaques appear stable from prior examination. In the posteromedial base of the left lower lobe, there is a lobulated focus of increased density, measuring approximately 2.0 x 1.0 cm, and appears new
from prior examination. This may represent slight progression of pleuroparenchymal scarring, but a small focus of acute pneumonitis at this location is also possible. There is also a rounded area of parenchymal disease more superiorly in the
medial aspect of the left lower lobe, and could represent focal pneumonitis or atelectasis.
Of note, the consolidative airspace density in the right lower lobe is new from prior examination and is likely pneumonia. Given this right lower lobe finding, at least a portion of the findings in the left base that are new are probably from a
component of acute pneumonitis in the left lower lobe.
Of note, there is a small calcified pleural plaque in the posteromedial right lower lobe, which I did not initially appreciate. With bilateral calcified pleural plaques, the possibility of asbestos exposure is still entertained.
Outpatient [facility] Data from [facility]:
CT chest 05/14/2019: (read as per grout pump operator Dr. Aparicio): Bilateral bronchiectasis that is predominant lung bases with calcified pleural plaque primarily in the left side.
6�minute walk test 09/20/2022: Walked 1230 feet, dwight oxygen saturation 94% on room air
Bronchoscopy 08/29/2023:
� Pseudomonas aeruginosa
� Fungal culture negative at 2 weeks
� AFB negative at 6 weeks
Bronchoscopy 05/28/2019:
� Pseudomonas aeruginosa
� Fungal culture negative at 2 weeks
� AFB negative in 6 weeks
Sinus culture 08/29/2023:
� Pseudomonas aeruginosa
� MSSA
Sinus culture 03/27/2023:
� Pseudomonas aeruginosa
� MSSA
Sinus culture 01/25/2023:
� MSSA (chronically present)
Sputum culture 07/05/2019:
� Pseudomonas aeruginosa
PFT/spirometry:
Spirometry: 03/18/2024
FEV1/FVC: 60; FEV1: 1.03 L / 39%; FVC: 1.72 L / 50%
Spirometry: 01/10/2024:
FEV1/FVC: 68; FEV1: 0.78 L / 27%; FVC: 1.15 L / 26%
PFT: 06/26/2023:
Pre-BD FEV1/FVC: 67 --> 61 post-BD;post-BD FEV1: 0.8 L / 30%; post BD FVC: 1.46 L / 40%; T% / 3.7 L; DLco: 55% predicted
Reports and relevant images were personally reviewed.
Subjective Data
-
Date of Service:
Date of Service: April 02, 2024
Chief Complaint: Pulmonary Follow Up
Subjective:
Patient seen and evaluated today at bedside. He went into atrial fibrillation this morning at around 10:45 AM and he had reflux prior to that but no chest pain or shortness of breath. He is currently on room air and says his breathing is doing
well with no worsening shortness of breath or cough today. He currently denies chest pain, headache, abdominal pain, fevers or chills.
Review of Systems
General: Other (Negative unless mentioned above)
Objective Data
Data Reviewed
Vital Signs / I&O / Oxygen:
Vital Signs
Temp Pulse Resp BP Pulse Ox
97.3 F 78 20 160/83 93
04/02/24 07:00 04/02/24 08:41 04/02/24 08:37 04/02/24 08:41 04/02/24 08:37
Intake and Output
04/01/24 04/02/24 04/03/24
06:59 06:59 06:59
Intake Total 1979 420 / 420
Balance 1979 420 / 420
SaO2 93
Nasal Cannula flow liters per 1
minute
Physical Exam
General: Respiratory Distress (negative) and Comfortable
Cardiovascular: Irregular Rhythm, Peripheral Edema (negative) and Other (Tachycardic)
Respiratory: Wheeze (Bibasilar), Crackles (Bilateral), Rhonchi (Bilateral) and Accessory Resp Muscle Use (negative)
GI: Soft, Non Distended, Non Tender and Normal Bowel Sounds
Neurology: AO x 3 and Tremors (negative)
Skin: Warm, Dry and Jaundice (negative)
Labs/Micro/Reports
Lab Data
03/31/24 06:20
03/31/24 06:20
Microbiology
04/01/24 00:31 Sputum Respiratory Culture - Preliminary
Usual Respiratory Lauryn
04/01/24 00:31 Sputum Gram Stain - Preliminary
03/30/24 20:12 Blood/Venous Blood Culture - Preliminary
No Growth in 48 hours- Final report to follow
03/30/24 20:12 Blood/Venous Blood Culture - Preliminary
No Growth in 48 hours- Final report to follow
[2024-04-02] MEDS: TUMS 1 TABLET PO (11:24)
--- NOTE | 2024-04-02 11:49 | W.PN.HOSP.TC ---
Today's Communication/Plan
-
Heart rate control
Check troponin
Cardiology evaluation
Continue antibiotics
Check echo
Assessment / Plan
Assessment / Plan
73y M with PMH significant for chronic lung disease who presents to ED complaining of worsening cough, dyspnea and subjective fevers / chills.
CTA chest: No evidence of central pulmonary embolism. Unfortunately, small bilateral peripheral lower lobe pulmonary emboli cannot be excluded on the basis of this study at least in part due to the prominent interstitial changes described below.
Calcified pleural plaques again seen with some progression in comparison to relative remote prior study. Significant progression of predominantly widespread bilateral prominent interstitial markings in comparison to relative remote prior study.
Unfortunately, chronic interstitial changes cannot be differentiated from acute upon chronic interstitial changes.
Opacity in the right lower lobe and larger opacity in the left lower lobe which could represent atelectasis, cannot exclude pneumonia, particularly in the left lower lobe.
CVS: S1-S2 irregular and tachycardic
Chest: few scattered short wheezes
Abdomen: Soft, NT / Bowel sounds present
Extremities: No edema, normal pulses
GAS PLANT REPAIRER: Non focal exam
#Acute Bronchitis / Bronchiectasis
Acute Exacerbation of Allergic Asthma
Asbestosis
Pulmonary Nodules
Interstitial Lung Disease
Acute Hypoxic Resp insufficiency.
-CT chest above and notable for interstitial changes
-I would treat him with a course of AB. Agree with Doxy and Azactam.
-Discussed with the patient plaques on discussed about cross-reactivity percentage . He is agreeable.
-Symptoms do seem to have been triggered by mulch exposure based on patient history
-IV Decadron
-Nebs ATC and PRN.
-Continue Singulair and Zyrtec.
-Pulm Consulted and following
#New Afib-Place on tele. Cardizem 5 mg IV now and then drip.
Check troponin and echo
Cardiology evaluation given new findings
Get outpatient cardiology notes and records from [place] jersey knitter Dr.Nitin Roberts.
#Nocturnal Hypoxia- Pt bought a portable concentrator on his own. Discussed with the patient to get sleep study done as outpatient.
#Essential Hypertension: On ARB/HCTZ as OP. May need to adjust with CCB
#History of prostate carcinoma with radiation seeds.
#Remote smoking history , Smoked sparingly and quit 40 years ago
#FULL code
#DVT Prophylaxis-Lovenox
D/W Pulm
D/W RN at bed side
D/W Pharmacy
D/W Cards
Time spent over 50 min
Anticipated Discharge: 24 - 48 hours
Subjective/Interval History
-
Date of Service: April 02, 2024
Objective Data
-
Labs:
Laboratory Results
04/02/24
11:48
Sodium Pending
Potassium Pending
Chloride Pending
Carbon Dioxide Pending
BUN Pending
Creatinine Pending
Glucose Pending
Calcium Pending
Vital Signs:
Vital Signs
Temp Pulse Resp BP Pulse Ox
97.3 F 78 20 160/83 93
04/02/24 07:00 04/02/24 08:41 04/02/24 08:37 04/02/24 08:41 04/02/24 08:37
I&O
04/01/24 04/02/24 04/03/24
06:59 06:59 06:59
Intake Total 1979 420 / 420
Balance 1979 420 / 420
[2024-04-02] MEDS: CARDIZEM 5 MG IV (12:01)
[2024-04-02 12:24] LABS: Blood Urea Nitrogen 25 mg/dl (9-20); Calcium 9.7 mg/dl (8.4-10.2); Carbon Dioxide 29 mmol/L (22-30); Chloride 101 mmol/L (98-107); Estimated Creatinine Clearance 71 ml/min; Glucose 99 mg/dl (70-99); Potassium 4.5 mmol/L (3.5-5.1); Sodium 139 mmol/L (135-145); eGFR > 60.00
[2024-04-02 12:36] LABS: Troponin I 0.013 ng/ml
[2024-04-02] MEDS: CARDIZEM 125 IV ×2 (13:04→21:43)
--- NOTE | 2024-04-02 14:07 | CON.CAR ---
Addendum entered and electronically signed by Abelardo Alonso DO 04/02/24 16:01:
I saw and examined the patient.
The Center Consultant's note was reviewed and I agree with the note.
Comment:
Patient is a pleasant 73-year-old with a history of chronic bronchiectasis/ILD, hypertension, hyperlipidemia, history of prostate cancer status post radiation seeds who presents from outside hospital due to fever chills and weakness found to have
pneumonia for which undergoing treatment. Following dosing of doxycycline, patient went into AF RVR which is new for him. In discussion with him, he reports symptoms including palpitations and shortness of breath/decreased exercise capacity with
activity and exertion. Otherwise, is resting comfortably in bed without complaint. He also notes some epigastric burning discomfort with activity and exertion while in AF RVR. Patient denies any other chest pain, lightheadedness, dizziness,
near-syncope, syncope, PND, with apnea, edema, or weakness. He reports he is very active at home with gardening and physical activity. 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 Patient follows closely with blender/braze applicator at Dr. Uvaldo
Luis Roberts; patient does not have an gear roller.
GENERAL: no acute distress
EYE: sclera anicteric
NECK: Supple, no JVD, no carotid bruit appreciated
ENT: normal nose, moist mucosal membranes
CARDIAC: irregularly irregular, tachycardic, +S1/S2, 2/6 holosystolic murmur (difficult to appreciate in setting of rapid rate); no rubs, or gallops
CHEST/PULMONARY: Normal effort, exp wheeze, bibasilar crackles
ABDOMEN: Soft, without focal tenderness or distention
NEUROLOGICAL: Alert and oriented x3
SKIN: Warm and dry, no rash
PSYCH: Normal and appropriate interaction.
A/P as below
� [id number]: 3 (hypertension, age). Not current on oral anticoagulation; will recommend Eliquis 5 mg twice daily for stroke risk reduction
� Currently rate controlled with diltiazem, gtt. at 5/h; uptitrate for goal heart rate less than 110 bpm. If difficult to control on IV medication, consider addition of Cardizem orally to assist in reduction of IV medication; if still difficult to
control heart rates, consider ELMIRA/DCCV for scientology of sinus rhythm; likely avoid beta-blockers in the setting of significant lung disease appreciate input from pulmonology
� Transthoracic echo
� Obtain records from primary blender/braze applicator regarding stress testing and prior history
� Treat underlying cause with current pneumonia/lung disease
Original Note:
Consultation
Consultation Request
Date/Time Consultation Performed: 04/02/24
Requesting Provider: Dr. Fitch
Performing Provider: Kelin Reyes PA-C for Dr. Alonso
Reason for Consultation: afib
Medical History
-
Chief Complaint: fevers/chills/weakness
History of Present Illness:
Patient is a 73-year-old male with past medical history of chronic bronchiectasis/ILD, hypertension, hyperlipidemia, history of prostate cancer s/p radiation seeds who presented to outside hospital due to fever/chills and weakness. He is being
treated for pneumonia. He states he was given doxycycline last evening and shortly thereafter went into atrial fibrillation with rapid ventricular response. He has never had A-fib before. He denies any symptoms associated with his A-fib including
chest pain, shortness of breath, palpitations, lightheadedness. He reports a history of heart racing with doxycycline in past. He is followed by [facility], Dr. Luis Roberts. He states he is very active at home.
PMH:
Chronic bronchiectasis/ILD
Concern for prior asbestos exposure
History of pulmonary nodules
Chronic allergies
Hypertension
Hyperlipidemia
History of prostate cancer status post radiation seeds
Remote former smoker
Past Medical History
Past Medical History: Other (in HPI)
Social History
Tobacco: Former Smoker (remote)
Personal:
Living: With Family
Employment: Employed
Allergies / Home Medications
Allergy/AdvReac Type Severity Reaction Status Date / Time
Penicillins Allergy Hives Verified 12/14/12 11:05
Sulfa (Sulfonamide Allergy Hives Verified 12/14/12 11:05
Antibiotics)
�Medication �Instructions �Recorded �Confirmed �Type
montelukast 10 mg tablet 10 mg PO QPM Lung/Breathing Issues 12/22/09 03/30/24 History
multivitamin with folic acid 400 1 tab PO HS Supplement 12/22/09 03/30/24 History
mcg tablet (Tab-A-Sabine)
albuterol sulfate 2.5 mg/3 mL 2.5 mg inhalation BID 03/30/24 03/30/24 History
(0.083 %) solution for nebulization Lung/Breathing Issues
ascorbic acid (vitamin C) 250 mg 250 mg PO DAILY Supplement 03/30/24 03/30/24 History
tablet (Vitamin C)
azithromycin 250 mg tablet 250 mg PO MOWEFR Infection 03/30/24 03/30/24 History
calcium acetate(phosphat bind) 667 667 mg PO DAILY Kidney Disease 03/30/24 03/30/24 History
mg tablet
cetirizine 10 mg tablet 10 mg PO DAILY Allergies 03/30/24 03/30/24 History
cholecalciferol (vitamin D3) 125 125 mcg PO DAILY Supplement 03/30/24 03/30/24 History
mcg (5,000 unit) capsule
fluticasone propionate 230 2 puff inhalation BID 03/30/24 03/30/24 History
mcg-salmeterol 21 mcg/actuation Lung/Breathing Issues
HFA inhaler (Advair HFA)
hydrochlorothiazide 25 mg tablet 25 mg PO DAILY Blood Pressure 03/30/24 03/30/24 History
levofloxacin 750 mg tablet 750 mg PO DAILY Infection 03/30/24 03/30/24 History
mometasone 50 mcg/actuation nasal 1 spray intranasal BID Allergies 03/30/24 03/30/24 History
spray
omega-3 acid ethyl esters 1 gram 1 cap PO DAILY Heart 03/30/24 03/30/24 History
capsule (Lovaza) Disease/Condition
omeprazole 20 mg tablet,delayed 20 mg PO DAILY PRN GERD 03/30/24 03/30/24 History
release
prednisone 10 mg tablet 10 mg PO DAILY Anti-Inflammatory 03/30/24 03/30/24 History
tobramycin 1 spray intranasal BID Infection 03/30/24 03/30/24 History
valsartan 320 mg tablet 320 mg PO DAILY Blood Pressure 03/30/24 03/30/24 History
Review of Systems
-
History Source: Patient
All other systems: Negative unless noted
Physical Exam
Vital Signs
Temp Pulse Resp BP Pulse Ox
97.3 F 150 20 146/80 93
04/02/24 07:00 04/02/24 12:01 04/02/24 08:37 04/02/24 12:01 04/02/24 08:37
Lab Results
03/31/24 06:20
04/02/24 12:00
Troponin I 0.013 ng/ml 04/02/24 12:00
Eww-G-Uzwlbdyutvl Pept 54.0 pg/ml 03/30/24 15:52
Physical Exam
General: No Apparent Distress and Comfortable
HEENT: Normocephalic, Anicteric and Moist Mucous Membranes
Respiratory: Wheezes (B/L) and Non Labored Respirations
Cardiac: S1/S2, Irregular Rhythm and Other (tachycardic)
Musculoskeletal: No Clubbing, No Cyanosis and No Edema
Skin: Warm and Dry
Neuro: AO x 3
Impression / Plan
-
Primary Applications Support Engineer: Dr. Candelario Roberts of [place]
Assessment:
Presentation with cough, SOB, chills
Pneumonia
Acute bronchitis/bronchiectasis
Acute exacerbation of allergic asthma
Acute hypoxic respiratory insufficiency secondary to above
New atrial fibrillation with rapid ventricular response of less than 48 hours duration
Concern for prior asbestos exposure
History of pulmonary nodules
Chronic allergies
Hypertension
Hyperlipidemia
History of prostate cancer status post radiation seeds
Remote former smoker
ECHO 04/02/24: pending
Plan:
-Patient being treated for pneumonia/acute bronchitis/bronchiectasis. CXR and Chest CT results reviewed.
-Was noted to go into A-fib with rapid ventricular response overnight. Remains rapid at present. On IV Cardizem gtt at 5, will uptitrate
-Check echo
-TSH within normal limits
-Troponin 0.013, trend. No chest pain. Patient reports recent stress test within the year as an outpatient through his primary blender/braze applicator
-Obtain records from primary blender/braze applicator for review
-[id number] score of 3 for age, hypertension. We discussed anticoagulation for stroke prevention. He reports an episode of lower extremity bleeding on aspirin in the past, however no other bleeding issues. Will plan to stop Lovenox and initiate
Eliquis 5 mg twice daily. Will have case management assess cost to patient
-Hopefully his atrial fibrillation is in setting of acute respiratory issues
-may need to consider for CV prior to DC if remains rapid despite rate control agents. ideally would want patient improved from respiratory standpoint first
-Outpatient follow-up with [facility]
-d/w nursing
Data Reviewed
-
EKG: Tracing Personally Visualized and interpreted
Radiology: Report Reviewed by me
CT Scan: Report Reviewed by me
Medical Tests (Nuc Med, Echo etc): Report Reviewed by me
Labs: Labs Reviewed by me
Old Records: Requested and Reviewed
[2024-04-02 15:00] VITALS: BP 114/70
[2024-04-02] MEDS: SINGULAIR 10 MG PO (17:09)
--- NOTE | 2024-04-02 17:09 | CM ---
ON 04/01/24 home oxygen test qualified pt for home oxygen . Pt had [employer] in past for oxygen but was removed. Spoke with Jefe TINSLEY.
Today pt on room air POX 94%.
Will need repeat home oxygen test tomorrow if MD believes he needs home oxygen .
Pt and Loyd [phone] said that she did not want VN .
said they bought a [employer] from [employer] [phone] and it is broken . Call [facility] spoke with Myesha asked her to call and get a replacement sent to him.As per replacement is being sent to patient .
PLAN Home no VN Watch for home oxygen needs
[2024-04-02 19:07] LABS: Troponin I 0.403 ng/ml
[2024-04-02 20:06] VITALS: BP 110/63
[2024-04-02 20:45] LABS: Hematocrit 39.1 % (39.0-52.0); Hemoglobin 12.7 g/dL (13.0-18.0); Mean Corp Hgb Conc. 32.5 g/dL (33.0-37.0); Mean Corpuscular Hgb 26.2 pg (27.0-31.0); Mean Corpuscular Volume 80.8 fL (80.0-94.0); Mean Platelet Volume 9.7 fL (7.4-10.4); Platelet Count 422 10^3/uL (130-400); Red Blood Cell Count 4.84 10^6/uL (4.70-6.10); Red Cell Dist. Width 15.5 % (11.5-14.5); White Blood Cell Count 17.6 10^3/uL (4.8-10.8)
[2024-04-02 20:56] LABS: APTT 30.9 Sec (23.4-35.0)
[2024-04-02 22:09] VITALS: BP 134/81
[2024-04-02] MEDS: HEPARIN 25000 UNITS/250 ML IV (22:31)
--- NOTE | 2024-04-02 23:06 | PTCARENOTE ---
pt transferred to 2243. Heparin GTT started at 900 u/hr . cardizem at 15 . VSS. Call garcia within reach .
[2024-04-03] VITALS (7 sets, daily range): BP systolic 108–154; BP diastolic 54–94; BMI 25.0
[2024-04-03] MEDS: AZACTAM 2000 MG IV ×3 (04:11→20:50)
[2024-04-03] MEDS: STERILE WATER FOR INJECTION 10 ML IV ×3 (04:11→20:50)
[2024-04-03 04:55] LABS: Blood Urea Nitrogen 36 mg/dl (9-20); Calcium 9.3 mg/dl (8.4-10.2); Carbon Dioxide 23 mmol/L (22-30); Chloride 105 mmol/L (98-107); Estimated Creatinine Clearance 71 ml/min; Glucose 134 mg/dl (70-99); Sodium 137 mmol/L (135-145); eGFR > 60.00
--- NOTE | 2024-04-03 05:35 | W.PN.UPDATE ---
Update Note
Progress Note Update
RN notified GUI DEVELOPER, Patient Troponin level increased from 0.013>0.403, Patient asymptomatic, stable VS 97.6 temp, HR 90 BP 110/63 94% on room air RR 18. EKG done. Blow Moulding Machine Operator Dr. Alonso made aware. Advised to hold Eliquis, initiate Heparin drip, trend
EKG. Will transfer to IVU.
[2024-04-03] MEDS: CARDIZEM 125 IV ×2 (05:45→14:01)
[2024-04-03] MEDS: ADVAIR HFA 230/21 MCG INHALER 2 PUFF INH ×2 (07:50→19:58)
--- NOTE | 2024-04-03 08:32 | PTCARENOTE ---
NSR noted on the monitor, he was in Afib at the start of my shift. He converted at 0816. An ECG confirmed his conversion. Cardizem gtt running at a 'do not titrate' dose of 15mg/hr. Notified Cardiology.
[2024-04-03] MEDS: DIOVAN 320 MG PO (08:40)
[2024-04-03] MEDS: MUCINEX 1200 MG PO ×2 (08:40→20:48)
[2024-04-03] MEDS: ZYRTEC 10 MG PO (08:40)
[2024-04-03] MEDS: ORETIC 25 MG PO (08:40)
[2024-04-03] MEDS: DECADRON 4 MG IV (08:41)
[2024-04-03] MEDS: VIBRAMYCIN 260 MG IV (08:42)
[2024-04-03] MEDS: FLUSH (NSS) 3 FLUSH IV (08:43)
--- NOTE | 2024-04-03 09:28 | CM ---
Addendum entered by Carlotta Moses 04/03/24 10:43:
Reviewed co-pay cost of $30.00 a month. Reviewed Coupon of $10.00 a month, and he is agreeable to the co-pay.
Addendum entered by Carlotta Moses 04/03/24 10:01:
Telephone call to [facility] to check if Eliquis 5 mg po bid is in stock. [facility] has it in stock. His co-pay would be $30.00 a month. He has commercial insurance so he can use the $10.00 coupon.
Original Note:
Reviewed chart. Mr. Kang was transferred to IVU. Met with Mr. Kang to review discharge plans. He states prior to admission he resides with his spouse in a three stroy home with two steps to enter. He states he has a full flight of steps to
get to bedroom/full bathroom. He states prior to admission he was independent with ambulation and adls. He states he has an [employer] 02 at home, but it is currently not working. Will continue to watch for home 02 needs. His prescription plan is
with [facility], ( [phone]) they would not give him his co-pay amount. He has commercial insurance so he can use the $10.00 co-pay card. Placed the coupon in his red discharge. Medical work-up in progress. The discharge plan is to return
home with his spouse when medically stable.
--- NOTE | 2024-04-03 09:56 | W.PN.HOSP.TC ---
Today's Communication/Plan
-
Converted to sinus rhythm overnight
Check echo
Troponin rising-unclear if nonischemic myocardial injury secondary to rapid heart rate or ischemia was a primary event which led to arrhythmia.
Check echo if has wall motion abnormality may need cardiac catheterization
Patient was started on heparin drip overnight. Trend troponin until it peaks
Continue Antibiotics
His lungs are improving
Get records from Dr.Nitin Roberts
Assessment / Plan
Assessment / Plan
73y M with PMH significant for chronic lung disease who presents to ED complaining of worsening cough, dyspnea and subjective fevers / chills.
CTA chest: No evidence of central pulmonary embolism. Unfortunately, small bilateral peripheral lower lobe pulmonary emboli cannot be excluded on the basis of this study at least in part due to the prominent interstitial changes described below.
Calcified pleural plaques again seen with some progression in comparison to relative remote prior study. Significant progression of predominantly widespread bilateral prominent interstitial markings in comparison to relative remote prior study.
Unfortunately, chronic interstitial changes cannot be differentiated from acute upon chronic interstitial changes.
Opacity in the right lower lobe and larger opacity in the left lower lobe which could represent atelectasis, cannot exclude pneumonia, particularly in the left lower lobe.
CVS: S1-S2 regular
Chest: few scattered short wheezes left side, right CTA
Abdomen: Soft, NT / Bowel sounds present
Extremities: No edema, normal pulses
LIVING SKILLS ADVISOR: Non focal exam
#Acute Bronchitis / Bronchiectasis
Acute Exacerbation of Allergic Asthma
Asbestosis
Pulmonary Nodules
Interstitial Lung Disease
Acute Hypoxic Resp insufficiency.
-CT chest above and notable for interstitial changes
-I would treat him with a course of AB. Agree with Doxy and Azactam. Would consider switching to Levaquin at discharge to complete a 10-day course.( Even though Procal is negative)
-IV Decadron
-Nebs ATC and PRN.
-Off oxygen now
-Continue Singulair and Zyrtec.
-Leukocytosis likely secondary to steroids
-Pulm Consulted and following
#New Afib-
Converted to sinus rhythm overnight
Check echo
Troponin rising-unclear if nonischemic myocardial injury secondary to rapid heart rate or ischemia was a primary event which led to arrhythmia.
Check echo if has wall motion abnormality may need cardiac catheterization
Patient was started on heparin drip overnight. Trend troponin until it peaks
CHADSVASC2 Score 3
Cardiology has been consulted
Get outpatient cardiology notes and records from [facility] physician Dr.Nitin Roberts. Requested ( Including recent stress test)
#Nocturnal Hypoxia- Pt bought a portable concentrator on his own. Discussed with the patient to get sleep study done as outpatient.
#Essential Hypertension: On ARB/HCTZ as OP. Decrease Diovan to 160 mg daily from 320 mg daily as he needs rate controlling agents-CCB
#History of prostate carcinoma with radiation seeds.
#Remote smoking history , Smoked sparingly and quit 40 years ago
#FULL code
#DVT Prophylaxis heparin drip
Outpatient records from Dr.Daniel Aparicio -[facility] reviewed. Patient has a history of bronchiectasis and chronic sinusitis. He was advised to try tobramycin nebulizer and 3% hypertonic saline nebulizer treatments. Also pulmonary rehab. He
uses vest regularly for airway clearance at home. Patient did not have a chance to get tobramycin filled because of pharmacy issues. His rkbh-jnaiitig-ouwtfnrrn was stopped recently as outpatient.
Outpatient medicines as of 03/18/2024 included 3% saline twice daily, albuterol twice daily, Zithromax to 50 mg Monday, tobramycin 300 mg neb twice a day, Advair twice a day, sinus lavages with tobramycin and mometasone twice daily,
cetirizine 10 mg daily, Singulair 10 mg daily, omeprazole 20 mg daily, prednisone 10 mg daily, valsartan 320 mg daily, hydrochlorothiazide 25 mg daily, pravastatin 40 mg daily, vitamins and fish oil
High-frequency chest wall oscillation vest and also supplemental oxygen 2 L at night.
He had bronchoscopy 08/21/2022 which showed Pseudomonas aeruginosa. Fungal cultures were negative and AFB was negative. He also has had Pseudomonas in the culture 2019 bronchoscopy and sputum cultures. Sinus culture 03/27/2023 showed Pseudomonas
also.
CT showed bilateral bronchiectasis and calcified pleural plaques on the left side
He had a 6-minute walk test September 2023 saturations were 94% on room air
IgA and IgG were elevated with normal IgM IgE was 221
Testing for collagen vascular disease was also negative
Also requested Records from Dr.Nitin Roberts (Cardiology)
Time spent 53 min
Anticipated Discharge: > 48 hours
Subjective/Interval History
-
Date of Service: April 03, 2024
Objective Data
-
Labs:
Laboratory Results
04/03/24 04/03/24
04:01 10:45
APTT 52.0 H Pending
Sodium 137
Potassium 5.0
Chloride 105
Carbon Dioxide 23
BUN 36 H
Creatinine 0.9
Glucose 134 H
Calcium 9.3
Vital Signs:
Vital Signs
Temp Pulse Resp BP Pulse Ox
97.4 F 81 20 110/80 94
04/03/24 07:41 04/03/24 09:00 04/03/24 07:51 04/03/24 07:43 04/03/24 07:51
I&O
04/02/24 04/03/24 04/04/24
06:59 06:59 06:59
Intake Total 420 / 420 1260 / 1260
Balance 420 / 420 1260 / 1260
[2024-04-03 10:23] LABS: Troponin I 0.905 ng/ml
[2024-04-03] MEDS: VITAMIN C 250 MG PO (10:53)
[2024-04-03] MEDS: FLUSH (NSS) 2 FLUSH IV (11:59)
[2024-04-03] MEDS: DUONEB 3 ML INH ×2 (12:22→19:58)
--- NOTE | 2024-04-03 14:16 | W.PN.CARDCBS ---
Addendum entered and electronically signed by Jimbo Jefferson MD 04/03/24 15:03:
I saw and examined the patient.
The POND TENDER or PA's note was reviewed and I agree with the note.
Comment: General: Well developed, well nourished in NAD.
Neck: Supple, no JVD, HJR, carotids +2 B/L, no bruits bilaterally.
Heart: Non displaced PMI, RRR, 2/6 basal systolic murmur, No S3, S4, no rubs.
Lungs: Clear to auscultation bilaterally, no wheeze, rhonchi, rubs bilaterally,
normal expiratory phase.
Abdomen: Normal bowel sounds, soft, non-tender, non-distended.
Extremities: No clubbing, cyanosis or edema bilaterally.
Neuro: Grossly nonfocal, awake, alert and oriented x3
Discussed with patient in detail. Elevated troponin felt to be non-CO injury elevation. He wishes to discuss further with his docs at [facility] and can be done as an outpatient. He denies any chest pain or shortness of breath and is currently on room
air. He is spontaneously converted to sinus rhythm and will change IV Cardizem to Toprol. He has mild aortic stenosis that can be followed as an outpatient. Stable cardiology status for discharge. He can follow-up with [facility].
Discussed with primary service.
Original Note:
Today's Communication / Plan
-
awaiting [facility] records
transition IV heparin back to eliquis
OP ischemic eval through [facility]
transition IV cardizem to toprol
Impression / Plan
-
Primary Platform Worker: Dr. Candelario Roberts of [facility]
Assessment:
Presentation with cough, SOB, chills
Pneumonia
Acute bronchitis/bronchiectasis
Acute exacerbation of allergic asthma
Acute hypoxic respiratory insufficiency secondary to above
New atrial fibrillation with rapid ventricular response of less than 48 hours duration
Elevated troponin, suspected nonischemic myocardial injury in setting of above
Concern for prior asbestos exposure
History of pulmonary nodules
Chronic allergies
Hypertension
Hyperlipidemia
History of prostate cancer status post radiation seeds
Remote former smoker
ECHO 04/02/24: EF 70 to 75%, mild concentric LVH, mildly dilated RV, trace MR, mild with peak/mean gradients 28/17 mmHg, trace TR, PAP 20 mmHg
Plan:
-Patient being treated for pneumonia/acute bronchitis/bronchiectasis. on RA.
-converted to SR overnight. IV cardizem gtt stopped. will transition to toprol 25mg BID in setting of elevated trop
-echo with results as above
-eliquis was transitioned to IV heparin overnight as trop up to 1.2 and trending down. patient without CP. EKG in SR without acute ischemic changes. Patient reports recent stress test within the year as an outpatient through his primary
area intelligence technician, awaiting records, however likely will manage as nonischemic myocardial injury with plan for patient to follow up with [facility] for ischemic evaluation in short order. we also discussed option of inpatient ischemic evaluation and patient
prefers to complete through [facility]. will transition IV heparin back to eliquis.
-Outpatient follow-up with [facility]
-d/w nursing
Progress Note - Platform Worker
Subjective
Date of Service: April 03, 2024
Denies chest pain. Reports occasional cough. Denies shortness of breath
Objective
Labs:
04/02/24 20:41
04/03/24 04:01
Labs
Hgb 12.7 g/dL (13.0-18.0) L 04/02/24 20:41
Hct 39.1 % (39.0-52.0) 04/02/24 20:41
Plt Count 422 10^3/uL (130-400) H 04/02/24 20:41
PT 14.2 Sec (11.4-14.6) 03/30/24 18:00
INR 1.12 06/29/24 18:00
APTT 145.0 Sec (23.4-35.0) H 04/03/24 12:59
Sodium 137 mmol/L (135-145) 04/03/24 04:01
Potassium 5.0 mmol/L (3.5-5.1) 04/03/24 04:01
BUN 36 mg/dl (9-20) H 04/03/24 04:01
Creatinine 0.9 mg/dL (0.7-1.3) 04/03/24 04:01
Glucose 134 mg/dl (70-99) H 04/03/24 04:01
Troponins
04/02/24 04/02/24 04/03/24
12:00 18:36 04:01
Troponin I 0.013 0.403 H* D Cancelled
04/03/24 04/03/24
04:01 09:34
Troponin I 1.240 H* 0.905 H* D
Vital Signs and I&O:
Vital Signs
Temp Pulse Resp BP Pulse Ox
97.6 F 85 16 122/72 98
04/03/24 11:19 04/03/24 12:26 04/03/24 12:26 04/03/24 11:20 04/03/24 12:26
Vital Signs
Temp Pulse Resp BP Pulse Ox
97.6 F 85 16 122/72 98
04/03/24 11:19 04/03/24 12:26 04/03/24 12:26 04/03/24 11:20 04/03/24 12:26
Intake & Output
04/01/24 04/02/24 04/03/24 04/04/24
07:59 07:59 07:59 07:59
Intake Total 1979 420 / 420 1260 / 1260
Balance 1979 420 / 420 1260 / 1260
Physical Exam
Physical Exam
GEN: No distress, awake, alert, oriented x3. Sitting in chair
HEENT: supple, anicteric, mmm, EOMI
LUNGS: no audible wheezes
CV: SR on tele
EXT: No cyanosis, clubbing, edema
NEURO: Gross non-focal
SKIN: Warm, pink, dry. No rash
--- NOTE | 2024-04-03 14:45 | W.PN.UPDATE ---
Update Note
Progress Note Update
records obtained from [facility]. PET stress test completed 07/12/2023 with normal myocardial perfusion without evidence of ischemia or infarction, hyperdynamic LV with EF 71%, no wall motion abnormalities, TID 1.06
Echocardiogram with EF 60 to 65%, grade 1 diastolic dysfunction, mild aortic stenosis with peak/mean gradients 13/21 mmHg, NOHEMY 1.7 cm�, mild AR
[2024-04-03] MEDS: TOPROL XL 25 MG PO ×2 (15:59→20:50)
[2024-04-03] MEDS: FLUSH (NSS) 1 FLUSH IV (15:59)
[2024-04-03] MEDS: ELIQUIS 5 MG PO (16:47)
--- NOTE | 2024-04-03 17:40 | W.PN.PUL3 ---
Today's Communication / Plan
-
Transition to prednisone with rapid taper to baseline dose
Consider transition to oral doxycycline
Consider discontinuing aztreonam given rapid clinical improvement
Will follow-up with [facility]
Okay for discharge from pulmonary standpoint with follow-up down at [facility]
Assessment
-
Patient is a 73 year old M with PMH significant for bronchiectasis, asbestosis and chronic allergies/asthma who presents to ED complaining of worsening cough, SOB and chills x several days. He was started on oral prednisone 10mg per day about 3
weeks ago for symptoms of allergies / asthma. He notes worsening cough, SOB than baseline. Patient contacted his [employer] and was prescribed levofloxacin 750mg daily as well as inhaled tobramycin (tobra was not started yet). CT showing
diffuse patchy infiltrates, TIB pattern. We are consulted for eval.
Impression:
Abnormal CT scan with multifocal tree-in-bud nodular opacities and consolidation in the posterolateral RUL + LLL with mucoid impaction as well in the bilateral lower lobes due to multifocal CAP with history of pulmonary bronchiectasis
Acute respiratory failure with hypoxia due to above
Acute on chronic SOB/cough consistent with acute COPD exacerbation
Mild leukocytosis
New onset atrial fibrillation now on Cardizem drip
Nocturnal hypoxia on 2 L/min with sleep
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
- Chronic cough
- Pulmonary bronchiectasis who follows with pulmonary at [facility] with Dr. Aparicio on vest therapy + nebulized 3% hypertonic saline -unknown etiology for bronchiectasis with immunodeficiency, ABPA and collagen vascular disease ruled out.
Other DDx includes AAT deficiency, aspiration and postinfectious bronchiectasis
- History of Pseudomonas aeruginosa seen on bronchoscopy performed in August 2023 + 05/2019 awaiting to be started on nebulized tobramycin by outpatient cement loader
- Pleural plaque due to asbestos exposure
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
- Atelectasis s/p bronchoscopy 12/23/09: BAL was performed in RLL, negative cultures/+ rosalind
Neg for acid fast x 2
- Severe restrictive lung disease with FVC 39% predicted on PFT from June 2023
- Severe COPD with moderate gas exchange capacity defect (post BD FEV1: 0.88 L / 32% predicted) on azithromycin 250mg TIW + chronic prednisone + Advair HFA 230mcg 2 puffs BID
- Chronic asthma, follows with Dr Elizabeth
- Allergic rhinitis
Elevated immunoglobulin E
- Chronic rhinosinusitis follows with ENT at [facility] (Dr. Spicer) -uses sinus lavages with tobramycin in the lavage
- History of prostate carcinoma with radiation seeds
Plan
At this time, patient appears to be objectively and subjectively improved
Hypoxemia noted on arrival, O2 dwight 89%, placed on O2
Ambulating on room air without difficulty at this time
Denies any shortness of breath
Patient has home O2 concentrator and wears oxygen 2 lpm at night only--recommend outpatient sleep study
Home O2 evaluation eventually prior to discharge
Prior history of lung disease is noted including bronchiectasis, asthma/allergies and chronic rhinosinusitis on sinus lavage
No prior records of recent imaging at since 2011. Last CT from 2009 in which he underwent bronchoscopy without infection.
Medical records obtained from the last office visit note from patient's cement loader, Dr. Aparicio and [facility].
Patient has lower lobe predominant mucus impaction and given the multifocal tree-in-bud nodular opacities with dyspnea on exertion and productive cough, he clinically has pneumonia, and these tree-in-bud nodular opacities are new compared to last CT
chest in 05/2019 done at [facility]
Had bronchoscopy in 2009 which showed negative cultures
He has evidence of Pseudomonas aeruginosa from multiple bronchoscopies including 05/2019 and 08/2023 and was post to be started on nebulized tobramycin as an outpatient
procal and proBNP negative
CXR/CT on this admission reviewed --> tree-in-bud nodular opacities are new compared to report obtained from last CT chest done at [facility] in 2018
Patient is adamant about going home. Given subjective improvement, this may be more likely from cardiac etiology
Doubt that few days of infection from bronchiectasis would improve this quickly
Will treat for acute CAP --> he has already received ceftriaxone x 1 day, azithromycin X 2 days and Levaquin X 2 days --> considering patient has had a reaction of keloids + hives to penicillin and also has a history of chronic bronchiectasis with
Pseudomonas aeruginosa seen on bronchoscopy, continue Aztreonam and doxycycline (started 04/01) --> plan for 7-10 days total; hold zithromax TIW for now until doxy has completed, then ok to restart TIW dosing
Follow-up sputum culture and blood cultures; check urine antigens for Legionella and strep pneumonia
He is on IV steroids with Decadron 4 mg IV q8hr --> wean as tolerated (wean down today to 4mg IV q12hr)
Consideration for bronch but depending on records/what has been done at [facility] --> for now patient is doing well, is stable with his degree of shortness of breath, and with improving levels of oxygen requirements, hence there is no indication
currently for bronchoscopy
Will transition to oral prednisone
Valvular disease noted per echo
Patient is wishing for evaluation [facility]
Resume home inhalers/nebs
Currently on vest BID
Continue acapella, Mucinex
Airway clearance reviewed
Defer atrial fibrillation management to cardiology; if patient starts amiodarone then he should obtain surveillance spirometry to assure his restrictive defect does not worsen; I am assuming he will follow-up with his cement loader at the [facility]
of [facility] following discharge, otherwise he can transition his care to see us
Disposition efforts
Diagnostic Data
CT Scan:
CT Chest 03/30/24- No evidence of central pulmonary embolism. Unfortunately, small bilateral peripheral lower lobe pulmonary emboli cannot be excluded on the basis of this study at least in part due to the prominent interstitial changes described
below.
Calcified pleural plaques again seen with some progression in comparison to relative remote prior study.
Significant progression of predominantly widespread bilateral prominent interstitial markings in comparison to relative remote prior study. Unfortunately, chronic interstitial changes cannot be differentiated from acute upon chronic interstitial
changes.
Opacity in the right lower lobe and larger opacity in the left lower lobe which could represent atelectasis, cannot exclude pneumonia, particularly in the left lower lobe.
CT Chest 07/15/10- Impression: Slight improvement in aeration of the lung bases as described, incomplete clearing however.
Pleural calcifications with pleural thickening in the left lung base is similar to the previous exam, likely related to prior previous asbestos exposure. Minimal fatty infiltration of the liver.
CT Chest 12/28/09- Impression: No significant change in poorly defined mass-like opacity in the right lower lobe. This could represent a pulmonary malignancy. Consider PET/CT for additional evaluation. Pleural calcifications as described. There is
pleural thickening in the left base. Evidence for rounded atelectasis in the left lower lobe. These findings are likely related to previous asbestos exposure.
CT chest 12/22/09- The left hemithorax pleural plaques appear stable from prior examination. In the posteromedial base of the left lower lobe, there is a lobulated focus of increased density, measuring approximately 2.0 x 1.0 cm, and appears new
from prior examination. This may represent slight progression of pleuroparenchymal scarring, but a small focus of acute pneumonitis at this location is also possible. There is also a rounded area of parenchymal disease more superiorly in the
medial aspect of the left lower lobe, and could represent focal pneumonitis or atelectasis.
Of note, the consolidative airspace density in the right lower lobe is new from prior examination and is likely pneumonia. Given this right lower lobe finding, at least a portion of the findings in the left base that are new are probably from a
component of acute pneumonitis in the left lower lobe.
Of note, there is a small calcified pleural plaque in the posteromedial right lower lobe, which I did not initially appreciate. With bilateral calcified pleural plaques, the possibility of asbestos exposure is still entertained.
Outpatient [facility] Data from [facility]:
CT chest 05/14/2019: (read as per cement loader Dr. Aparicio): Bilateral bronchiectasis that is predominant lung bases with calcified pleural plaque primarily in the left side.
6�minute walk test 09/20/2022: Walked 1230 feet, dwight oxygen saturation 94% on room air
Bronchoscopy 08/29/2023:
� Pseudomonas aeruginosa
� Fungal culture negative at 2 weeks
� AFB negative at 6 weeks
Bronchoscopy 05/28/2019:
� Pseudomonas aeruginosa
� Fungal culture negative at 2 weeks
� AFB negative in 6 weeks
Sinus culture 08/29/2023:
� Pseudomonas aeruginosa
� MSSA
Sinus culture 03/27/2023:
� Pseudomonas aeruginosa
� MSSA
Sinus culture 01/25/2023:
� MSSA (chronically present)
Sputum culture 07/05/2019:
� Pseudomonas aeruginosa
PFT/spirometry:
Spirometry: 03/18/2024
FEV1/FVC: 60; FEV1: 1.03 L / 39%; FVC: 1.72 L / 50%
Spirometry: 01/10/2024:
FEV1/FVC: 68; FEV1: 0.78 L / 27%; FVC: 1.15 L / 26%
PFT: 06/26/2023:
Pre-BD FEV1/FVC: 67 --> 61 post-BD;post-BD FEV1: 0.8 L / 30%; post BD FVC: 1.46 L / 40%; T% / 3.7 L; DLco: 55% predicted
Reports and relevant images were personally reviewed.
Subjective Data
-
Date of Service:
Date of Service: April 03, 2024
Chief Complaint: Pulmonary Follow Up
Subjective:
Patient seen ambulating throughout the unit, without any difficulty. Denies chest pain, shortness of breath. Anxious for discharge
Objective Data
Data Reviewed
Vital Signs / I&O / Oxygen:
Vital Signs
Temp Pulse Resp BP Pulse Ox
97.8 F 85 18 129/54 95
04/03/24 15:04 04/03/24 16:00 04/03/24 15:04 04/03/24 15:04 04/03/24 15:04
Intake and Output
04/02/24 04/03/24 04/04/24
06:59 06:59 06:59
Intake Total 420 / 420 1260 / 1260 260 / 260
Balance 420 / 420 1260 / 1260 260 / 260
SaO2 95
Nasal Cannula flow liters per 2
minute
Physical Exam
General: Comfortable
HEENT: Normocephalic
Cardiovascular: S1-S2, Irregular Rhythm, Murmur (2/6 systolic murmur) and Peripheral Edema (negative)
Respiratory: Wheeze (Bibasilar), Crackles (Bilateral, left greater than right), Rhonchi (Bilateral few), Non-Labored Respirations and Stridor (n)
GI: Soft, Non Distended, Non Tender and Normal Bowel Sounds
Neurology: Awake, Alert and No Motor Deficits (Ambulating)
Skin: Cyanosis (n) and Jaundice (negative)
Labs/Micro/Reports
Lab Data
04/02/24 20:41
04/03/24 04:01
Laboratory Results
04/02/24 04/03/24 04/03/24
20:41 04:01 10:52
APTT 30.9 52.0 H Cancelled
04/03/24 04/03/24
12:59 20:40
APTT 145.0 H Cancelled
Microbiology
04/03/24 11:38 Urine Legionella Urinary Antigen - Final
Negative for Legionella pneumophila Serogroup 1 antigen.
A negative result does not rule out the possiblity of
Legionella infection due to other serogroups or species of
Legionella. Clinical correlation is recommended.
04/03/24 11:38 Urine Streptococcus pneumoniae Antigen (M - Final
Negative for Streptococcus pneumoniae antigen.
A negative result does not exclude infection with
Streptococcus pneumoniae. Clinical correlation is
recommended.
04/01/24 00:31 Sputum Respiratory Culture - Final
Usual Respiratory Lauryn
04/01/24 00:31 Sputum Gram Stain - Final
03/30/24 20:12 Blood/Venous Blood Culture - Preliminary
No Growth in 72 hours- Final report to follow
03/30/24 20:12 Blood/Venous Blood Culture - Preliminary
No Growth in 72 hours- Final report to follow
[2024-04-03] MEDS: SINGULAIR 10 MG PO (18:27)
[2024-04-03] MEDS: VIBRAMYCIN 100 MG PO (20:49)
--- NOTE | 2024-04-04 01:56 | PTCARENOTE ---
Pt. remains in NSR this shift, VSS, no complaints pain/discomfort. Pt. hoping fir discharge later today. Currently sleeping.
[2024-04-04 03:32] VITALS: BP 140/71
[2024-04-04 03:33] VITALS: BMI 25.6
[2024-04-04] MEDS: AZACTAM 2000 MG IV (03:43)
[2024-04-04] MEDS: STERILE WATER FOR INJECTION 10 ML IV (03:44)
[2024-04-04 04:05] LABS: Mean Corp Hgb Conc. 33.3 g/dL (33.0-37.0); Mean Corpuscular Hgb 26.5 pg (27.0-31.0); Mean Corpuscular Volume 79.5 fL (80.0-94.0); Mean Platelet Volume 10.3 fL (7.4-10.4); Platelet Count 503 10^3/uL (130-400); Red Blood Cell Count 4.53 10^6/uL (4.70-6.10); Red Cell Dist. Width 15.7 % (11.5-14.5); White Blood Cell Count 14.9 10^3/uL (4.8-10.8)
[2024-04-04 05:23] LABS: Blood Urea Nitrogen 27 mg/dl (9-20); Estimated Creatinine Clearance 80 ml/min; Glucose 178 mg/dl (70-99)
[2024-04-04 05:24] LABS: Calcium 9.2 mg/dl (8.4-10.2); Carbon Dioxide 29 mmol/L (22-30); Chloride 104 mmol/L (98-107); Potassium 4.6 mmol/L (3.5-5.1); Sodium 139 mmol/L (135-145); eGFR > 60.00
[2024-04-04 07:02] VITALS: BP 164/85
[2024-04-04] MEDS: ADVAIR HFA 230/21 MCG INHALER 2 PUFF INH (07:33)
[2024-04-04] MEDS: FLUSH (NSS) 1 FLUSH IV (08:01)
[2024-04-04] MEDS: MUCINEX 1200 MG PO (08:02)
[2024-04-04] MEDS: VIBRAMYCIN 100 MG PO (08:02)
[2024-04-04] MEDS: DIOVAN 160 MG PO (08:02)
[2024-04-04] MEDS: ZYRTEC 10 MG PO (08:03)
[2024-04-04] MEDS: TOPROL XL 25 MG PO (08:03)
[2024-04-04] MEDS: ORETIC 25 MG PO (08:03)
[2024-04-04] MEDS: ELIQUIS 5 MG PO (08:03)
[2024-04-04] MEDS: DELTASONE 30 MG PO (08:03)
[2024-04-04] MEDS: VITAMIN C 250 MG PO (08:03)
[2024-04-04 08:18] VITALS: BP 148/75
--- NOTE | 2024-04-04 09:05 | W.PN.HOSP.TC ---
Today's Communication/Plan
-
DISCHARGE
Assessment / Plan
Assessment / Plan
73y M with PMH significant for chronic lung disease who presents to ED complaining of worsening cough, dyspnea and subjective fevers / chills.
CTA chest: No evidence of central pulmonary embolism. Unfortunately, small bilateral peripheral lower lobe pulmonary emboli cannot be excluded on the basis of this study at least in part due to the prominent interstitial changes described below.
Calcified pleural plaques again seen with some progression in comparison to relative remote prior study. Significant progression of predominantly widespread bilateral prominent interstitial markings in comparison to relative remote prior study.
Unfortunately, chronic interstitial changes cannot be differentiated from acute upon chronic interstitial changes.
Opacity in the right lower lobe and larger opacity in the left lower lobe which could represent atelectasis, cannot exclude pneumonia, particularly in the left lower lobe.
CVS: S1-S2 regular
Chest: few scattered rales bilateral
Abdomen: Soft, NT / Bowel sounds present
Extremities: No edema, normal pulses
DIRECTOR OF SEARCH ENGINE MARKETING: Non focal exam
#Acute Bronchitis / Bronchiectasis
Acute Exacerbation of Allergic Asthma
Asbestosis
Pulmonary Nodules
Interstitial Lung Disease
Acute Hypoxic Resp insufficiency.
-CT chest above and notable for interstitial changes
-Prednisone
-Nebs ATC and PRN.
-Off oxygen now
-Continue Singulair and Zyrtec.
-Leukocytosis likely secondary to steroids
-Pulm following
#New Afib-
Converted to sinus rhythm
ECHO-ejection fraction 70 to 75%. Mild concentric LVH. RV mildly dilated. Trace MR. Trace TR
Troponin nonischemic myocardial injury
Continue Eliquis
CHADSVASC2 Score 3
Stress test results from [facility] 07/12/2023-normal myocardial perfusion without evidence of ischemia or infarction. Hyperdynamic LV with ejection fraction 71%. No wall motion abnormality.
#Nocturnal Hypoxia- Pt bought a portable concentrator on his own. Discussed with the patient to get sleep study done as outpatient.
#Essential Hypertension: On ARB/HCTZ as OP. Decreased Diovan to 160 mg daily from 320 mg daily as he needs rate controlling agents-metoprolol started
# Prediabetes with hemoglobin A1c of 6.3. Patient made aware. He will follow-up with his hog scalder to see if he can cut back on the prednisone 10 mg which he is on chronically.
#History of prostate carcinoma with radiation seeds.
#Remote smoking history , Smoked sparingly and quit 40 years ago
#FULL code
#DVT Prophylaxis heparin drip
Outpatient records from Dr.Daniel Aparicio [facility] reviewed. Patient has a history of bronchiectasis and chronic sinusitis. He was advised to try tobramycin nebulizer and 3% hypertonic saline nebulizer treatments. Also pulmonary rehab. He
uses vest regularly for airway clearance at home. Patient did not have a chance to get tobramycin filled because of pharmacy issues. His pvvo-pfizturs-dbjbcjfwf was stopped recently as outpatient.
Outpatient medicines as of 03/18/2024 included 3% saline twice daily, albuterol twice daily, Zithromax to 50 mg Monday, tobramycin 300 mg neb twice a day, Advair twice a day, sinus lavages with tobramycin and mometasone twice daily,
cetirizine 10 mg daily, Singulair 10 mg daily, omeprazole 20 mg daily, prednisone 10 mg daily, valsartan 320 mg daily, hydrochlorothiazide 25 mg daily, pravastatin 40 mg daily, vitamins and fish oil
High-frequency chest wall oscillation vest and also supplemental oxygen 2 L at night.
He had bronchoscopy 08/21/2022 which showed Pseudomonas aeruginosa. Fungal cultures were negative and AFB was negative. He also has had Pseudomonas in the culture 2019 bronchoscopy and sputum cultures. Sinus culture 03/27/2023 showed Pseudomonas
also.
CT showed bilateral bronchiectasis and calcified pleural plaques on the left side
He had a 6-minute walk test September 2023 saturations were 94% on room air
IgA and IgG were elevated with normal IgM IgE was 221
Testing for collagen vascular disease was also negative
Discussed with nursing
Discussed with Dr. Roa
Discharge today
Discharge cordination time over 35 min
Anticipated Discharge: Today
Subjective/Interval History
-
Date of Service: April 04, 2024
Objective Data
-
Labs:
Laboratory Results
04/04/24 04/04/24
03:52 04:44
WBC 14.9 H
Hgb 12.0 L
Hct 36.0 L
Plt Count 503 H
Sodium Cancelled 139
Potassium Cancelled 4.6
Chloride Cancelled 104
Carbon Dioxide Cancelled 29
BUN Cancelled 27 H
Creatinine Cancelled 0.8
Glucose Cancelled 178 H
Calcium Cancelled 9.2
Vital Signs:
Vital Signs
Temp Pulse Resp BP Pulse Ox
97.9 F 100 18 164/85 96
04/04/24 07:00 04/04/24 07:39 04/04/24 07:39 04/04/24 07:02 04/04/24 07:39
I&O
04/03/24 04/04/24 04/05/24
06:59 06:59 06:59
Intake Total 1260 / 1260 260 / 260
Balance 1260 / 1260 260 / 260
--- NOTE | 2024-04-04 09:21 | W.DS.TRANS ---
Addendum entered and electronically signed by Juancho Fitch MD 04/04/24 14:52:
Dictation- [id number]
Original Note:
DC Summary - Research Staff Member
-
Discharge Instructions:
Discharge Diagnosis/Procedures Acute hypoxic respite insufficiency, acute
bronchitis,bronchiectasis, atrial fibrillation,
hypertension, history of prostate cancer,HbA1C 6
.3
Diet As tolerated
Activity As tolerated
Driving Restrictions As prior to admission
Blood Work HbA1C 3 months, CBC ,BMP 1 week
Others Tests imaging of chest per
Other Services VN
Instructions:
Stand-Alone Forms:
Changes to Home Medications: Yes
Discharge Medications:
DC Medications w/original date entered in [employer]
montelukast 10 mg tablet 10 mg PO QPM Lung/Breathing Issues 12/22/09
multivitamin with folic acid 400 mcg tablet (Tab-A-Saibne) 1 tab PO HS Supplement 12/22/09
albuterol sulfate 2.5 mg/3 mL (0.083 %) solution for nebulization 2.5 mg inhalation BID Lung/Breathing Issues 03/30/24
ascorbic acid (vitamin C) 250 mg tablet (Vitamin C) 250 mg PO DAILY Supplement 03/30/24
azithromycin 250 mg tablet 250 mg PO MOWEFR Infection 03/30/24
calcium acetate(phosphat bind) 667 mg tablet 667 mg PO DAILY Kidney Disease 03/30/24
cetirizine 10 mg tablet 10 mg PO DAILY Allergies 03/30/24
cholecalciferol (vitamin D3) 125 mcg (5,000 unit) capsule 125 mcg PO DAILY Supplement 03/30/24
fluticasone propionate 230 mcg-salmeterol 21 mcg/actuation HFA inhaler (Advair HFA) 2 puff inhalation BID Lung/Breathing Issues 03/30/24
hydrochlorothiazide 25 mg tablet 25 mg PO DAILY Blood Pressure 03/30/24
mometasone 50 mcg/actuation nasal spray 1 spray intranasal BID Allergies 03/30/24
omega-3 acid ethyl esters 1 gram capsule (Lovaza) 1 cap PO DAILY Heart Disease/Condition 03/30/24
tobramycin 1 spray intranasal BID Infection 03/30/24
apixaban 5 mg tablet (Eliquis) 5 mg PO BID Blood clot prevention/tx #30 tabs 04/04/24
benzonatate 100 mg capsule 200 mg (2 x 100 mg) PO TIDPRN PRN coughing #30 caps 04/04/24
guaifenesin 600 mg tablet, extended release 12 hr 1,200 mg (2 x 600 mg) PO Q12 #60 tabs 04/04/24
metoprolol succinate 25 mg tablet,extended release 24 hr 25 mg PO BID Arrhythmia #60 tabs 04/04/24
omeprazole 20 mg tablet,delayed release 20 mg PO DAILY GERD #0 tabs 04/04/24
prednisone 10 mg tablet 10 mg PO DIRECTED Lung/breathing issues #15 tabs 04/04/24
prednisone 10 mg tablet 10 mg PO DAILY Anti-Inflammatory #0 tabs 04/04/24
valsartan 320 mg tablet 160 mg (1/2 x 320 mg) PO DAILY Blood Pressure #0 tabs 04/04/24
Home Medication Changes
Prednisone dose increased
Valsartan dose decreased
Omeprazole changed to daily
Metoprolol, Eliquis are new
Pending Results: No
--- NOTE | 2024-04-04 09:24 | W.PN.PUL3 ---
Today's Communication / Plan
-
Discontinue antibiotics
Prednisone taper as below
Continue airway clearance measures at home
Follow-up with [facility] in the next month
Local follow-up information left in chart
Disposition efforts
Assessment
-
Patient is a 73 year old M with PMH significant for bronchiectasis, asbestosis and chronic allergies/asthma who presents to ED complaining of worsening cough, SOB and chills x several days. He was started on oral prednisone 10mg per day about 3
weeks ago for symptoms of allergies / asthma. He notes worsening cough, SOB than baseline. Patient contacted his Filing Or Registry Clerk and was prescribed levofloxacin 750mg daily as well as inhaled tobramycin (tobra was not started yet). CT showing
diffuse patchy infiltrates, TIB pattern. We are consulted for eval.
Impression:
Abnormal CT scan with multifocal tree-in-bud nodular opacities and consolidation in the posterolateral RUL + LLL with mucoid impaction as well in the bilateral lower lobes due to multifocal CAP with history of pulmonary bronchiectasis
Acute respiratory failure with hypoxia due to above
Acute on chronic SOB/cough consistent with acute COPD exacerbation
Mild leukocytosis
New onset atrial fibrillation now on Cardizem drip
Nocturnal hypoxia on 2 L/min with sleep
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
- Chronic cough
- Pulmonary bronchiectasis who follows with pulmonary at [facility] with Dr. Aparicio on vest therapy + nebulized 3% hypertonic saline -unknown etiology for bronchiectasis with immunodeficiency, ABPA and collagen vascular disease ruled out.
Other DDx includes AAT deficiency, aspiration and postinfectious bronchiectasis
- History of Pseudomonas aeruginosa seen on bronchoscopy performed in August 2023 + 05/2019 awaiting to be started on nebulized tobramycin by outpatient drill press tender
- Pleural plaque due to asbestos exposure
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
- Atelectasis s/p bronchoscopy 12/23/09: BAL was performed in RLL, negative cultures/+ rosalind
Neg for acid fast x 2
- Severe restrictive lung disease with FVC 39% predicted on PFT from June 2023
- Severe COPD with moderate gas exchange capacity defect (post BD FEV1: 0.88 L / 32% predicted) on azithromycin 250mg TIW + chronic prednisone + Advair HFA 230mcg 2 puffs BID
- Chronic asthma, follows with Dr Elizabeth
- Allergic rhinitis
Elevated immunoglobulin E
- Chronic rhinosinusitis follows with ENT at [facility] (Dr. Spicer) -uses sinus lavages with tobramycin in the lavage
- History of prostate carcinoma with radiation seeds
Plan/recommendations
At this time, patient appears to be objectively and subjectively improved
Exam this morning also improved, less rhonchorous, less wheeze. Minimal crackles at base
Ambulating without difficulty
Denies any shortness of breath
Patient has home O2 concentrator and wears oxygen 2 lpm at night only--recommend outpatient sleep study
Home O2 evaluation eventually prior to discharge
Patient has vest therapy, 3% saline at home, uses daily
Prior history of lung disease is noted including bronchiectasis, asthma/allergies and chronic rhinosinusitis on sinus lavage
No prior records of recent imaging at since 2011. Last CT from 2009 in which he underwent bronchoscopy without infection.
Medical records obtained from the last office visit note from patient's drill press tender, Dr. Aparicio and [facility].
Patient has lower lobe predominant mucus impaction and given the multifocal tree-in-bud nodular opacities with dyspnea on exertion and productive cough, he clinically has pneumonia, and these tree-in-bud nodular opacities are new compared to last CT
chest in 05/2019 done at [facility]
Had bronchoscopy in 2009 which showed negative cultures
He has evidence of Pseudomonas aeruginosa from multiple bronchoscopies including 05/2019 and 08/2023 and was post to be started on nebulized tobramycin as an outpatient
procal and proBNP negative
CXR/CT on this admission reviewed --> tree-in-bud nodular opacities are new compared to report obtained from last CT chest done at [facility] in 2018
Although patient is improved with aztreonam and doxycycline started 04/01, not convinced that this is the reason of his improvement
It may be multifactorial, with improvement in cardiac status as well
I reviewed with patient our typical approach with treatment for bronchiectasis
Adequate airway clearance (for which he is doing at home)
Minimize antibiotics, and when used directed by culture data when possible
Avoiding systemic steroids. His stroboroma operator her on prednisone about 6 weeks ago for abnormal allergy testing but patient had normal immunological workup
Moving forward
Would consider discontinuing antibiotics
If develops worsening symptoms, would send sputum culture
Last bronchoscopy August 2023 at [facility]
Patient will be following up with [facility] in next 1 mo (Alessandra)
'
30 mg prednisone today for 3 days, 20 mg for 3 days, 10 mg for 7 days, 10 mg M// for 1 week and then off
Patient has had elevated blood sugars in the interim. Has been on prednisone per immunology for the last 4 to 6 weeks as outpatient
He will resume and continue his outpatient airway clearance routine
Valvular disease noted per echo
Patient is wishing for evaluation [facility]
Defer atrial fibrillation management to cardiology; if patient starts amiodarone then he should obtain surveillance spirometry to assure his restrictive defect does not worsen; I am assuming he will follow-up with his drill press tender at the [facility] following discharge, otherwise he can transition his care to see us
Okay for discharge home today From a pulmonary standpoint. Provided my information for local follow-up if needed otherwise plan to follow-up with [facility]
Reviewed with patient at length, reviewed with primary service
Diagnostic Data
CT Scan:
CT Chest 03/30/24- No evidence of central pulmonary embolism. Unfortunately, small bilateral peripheral lower lobe pulmonary emboli cannot be excluded on the basis of this study at least in part due to the prominent interstitial changes described
below.
Calcified pleural plaques again seen with some progression in comparison to relative remote prior study.
Significant progression of predominantly widespread bilateral prominent interstitial markings in comparison to relative remote prior study. Unfortunately, chronic interstitial changes cannot be differentiated from acute upon chronic interstitial
changes.
Opacity in the right lower lobe and larger opacity in the left lower lobe which could represent atelectasis, cannot exclude pneumonia, particularly in the left lower lobe.
CT Chest 07/15/10- Impression: Slight improvement in aeration of the lung bases as described, incomplete clearing however.
Pleural calcifications with pleural thickening in the left lung base is similar to the previous exam, likely related to prior previous asbestos exposure. Minimal fatty infiltration of the liver.
CT Chest 12/28/09- Impression: No significant change in poorly defined mass-like opacity in the right lower lobe. This could represent a pulmonary malignancy. Consider PET/CT for additional evaluation. Pleural calcifications as described. There is
pleural thickening in the left base. Evidence for rounded atelectasis in the left lower lobe. These findings are likely related to previous asbestos exposure.
CT chest 12/22/09- The left hemithorax pleural plaques appear stable from prior examination. In the posteromedial base of the left lower lobe, there is a lobulated focus of increased density, measuring approximately 2.0 x 1.0 cm, and appears new
from prior examination. This may represent slight progression of pleuroparenchymal scarring, but a small focus of acute pneumonitis at this location is also possible. There is also a rounded area of parenchymal disease more superiorly in the
medial aspect of the left lower lobe, and could represent focal pneumonitis or atelectasis.
Of note, the consolidative airspace density in the right lower lobe is new from prior examination and is likely pneumonia. Given this right lower lobe finding, at least a portion of the findings in the left base that are new are probably from a
component of acute pneumonitis in the left lower lobe.
Of note, there is a small calcified pleural plaque in the posteromedial right lower lobe, which I did not initially appreciate. With bilateral calcified pleural plaques, the possibility of asbestos exposure is still entertained.
Outpatient [facility] Data from [facility]:
CT chest 05/14/2019: (read as per drill press tender Dr. Aparicio): Bilateral bronchiectasis that is predominant lung bases with calcified pleural plaque primarily in the left side.
6�minute walk test 09/20/2022: Walked 1230 feet, dwight oxygen saturation 94% on room air
Bronchoscopy 08/29/2023:
� Pseudomonas aeruginosa
� Fungal culture negative at 2 weeks
� AFB negative at 6 weeks
Bronchoscopy 05/28/2019:
� Pseudomonas aeruginosa
� Fungal culture negative at 2 weeks
� AFB negative in 6 weeks
Sinus culture 08/29/2023:
� Pseudomonas aeruginosa
� MSSA
Sinus culture 03/27/2023:
� Pseudomonas aeruginosa
� MSSA
Sinus culture 01/25/2023:
� MSSA (chronically present)
Sputum culture 07/05/2019:
� Pseudomonas aeruginosa
PFT/spirometry:
Spirometry: 03/18/2024
FEV1/FVC: 60; FEV1: 1.03 L / 39%; FVC: 1.72 L / 50%
Spirometry: 01/10/2024:
FEV1/FVC: 68; FEV1: 0.78 L / 27%; FVC: 1.15 L / 26%
PFT: 06/26/2023:
Pre-BD FEV1/FVC: 67 --> 61 post-BD;post-BD FEV1: 0.8 L / 30%; post BD FVC: 1.46 L / 40%; T% / 3.7 L; DLco: 55% predicted
Subjective Data
-
Date of Service:
Date of Service: April 04, 2024
Chief Complaint: Pulmonary Follow Up
Subjective:
Patient is feeling well. Denies any chest pain, hemoptysis, lightheadedness, dizziness. He is ambulating without difficulty. Moving bowels okay,
Objective Data
Data Reviewed
Vital Signs / I&O / Oxygen:
Vital Signs
Temp Pulse Resp BP Pulse Ox
97.9 F 100 18 164/85 96
04/04/24 07:00 04/04/24 07:39 04/04/24 07:39 04/04/24 07:02 04/04/24 07:39
Intake and Output
04/03/24 04/04/24 04/05/24
06:59 06:59 06:59
Intake Total 1260 / 1260 260 / 260
Balance 1260 / 1260 260 / 260
SaO2 96
Nasal Cannula flow liters per 2
minute
Physical Exam
General: Comfortable
HEENT: Normocephalic
Cardiovascular: S1-S2, Regular Rhythm, Murmur (2/6 systolic murmur) and Peripheral Edema (negative)
Respiratory: Wheeze (n), Crackles (Mild bibasilar), Rhonchi (None this morning), Non-Labored Respirations and Stridor (n)
GI: Soft, Non Distended, Non Tender and Normal Bowel Sounds
Neurology: Awake, Alert and No Motor Deficits (Ambulating)
Skin: Cyanosis (n) and Jaundice (negative)
Labs/Micro/Reports
Lab Data
04/04/24 03:52
04/04/24 04:44
Laboratory Results
04/03/24 04/03/24 04/03/24
10:52 12:59 20:40
APTT Cancelled 145.0 H Cancelled
Microbiology
03/30/24 20:12 Blood/Venous Blood Culture - Preliminary
No Growth in 4 days- Final report to follow
03/30/24 20:12 Blood/Venous Blood Culture - Preliminary
No Growth in 4 days- Final report to follow
04/03/24 11:38 Urine Legionella Urinary Antigen - Final
Negative for Legionella pneumophila Serogroup 1 antigen.
A negative result does not rule out the possiblity of
Legionella infection due to other serogroups or species of
Legionella. Clinical correlation is recommended.
04/03/24 11:38 Urine Streptococcus pneumoniae Antigen (M - Final
Negative for Streptococcus pneumoniae antigen.
A negative result does not exclude infection with
Streptococcus pneumoniae. Clinical correlation is
recommended.
04/01/24 00:31 Sputum Respiratory Culture - Final
Usual Respiratory Lauryn
04/01/24 00:31 Sputum Gram Stain - Final
--- NOTE | 2024-04-04 10:12 | PTCARENOTE ---
The patient is aaox3, vss, 95% on RA. Lungs are coarse with scattered with expiratory wheezing and BB crackles. He has a moist productive cough that produces white sputum. NSR is noted on the monitor. He is anticipating going home.
[2024-04-04 11:21] VITALS: BP 146/85
--- NOTE | 2024-04-09 09:00 | PN.CDI ---
Addendum entered and electronically signed by Juancho Fitch MD 04/11/24 18:05:
Documentation is complete at this time.
Original Note:
CDI
- -
CDI:
Physician Documentation Request
Admit Date: 03/30/24 21:23
[address] Doctor Constantine,
Patient admitted for interstitial lung disease.
04/04 Pulmonary PN: 'Abnormal CT scan with multifocal tree-in-bud nodular opacities and consolidation in the posterolateral RUL + LLL with mucoid impaction as well in the bilateral lower lobes due to multifocal CAP with history of pulmonary
bronchiectasis, Acute respiratory failure with hypoxia due to above'
04/04 Hospitalist PN: 'Interstitial Lung Disease, Acute Hypoxic Resp insufficiency.'
Selected Entries
03/31/24
02:15 03/31/24
15:00 04/01/24
07:33
Nasal Cannula flow liters per minute 2 4 3
Selected Entries
03/30/24
19:15 03/30/24
21:30 04/02/24
08:37
Resp Rate 23 26 20
Due to conflicting documentation, please clarify which of the following accurately represents the patient's respiratory status:
Acute hypoxic respiratory failure
Acute hypoxic respiratory insufficiency
Other
Additional information for Respiratory Failure:
Recognized criteria for Respiratory Failure (Source: [facility] Hospitalist Aug 2013)
ABGs: (1 or more) Symptoms Please indicate type if known
1. p)2 <60 or RA SPO2 <91% on RA 1. Tachypnea, SOB, dyspnea Hypoxic
2. pCO2 50 and pH <7.35 2. Use of accessory muscles Hypercapnic
3. pO2 decrease of pCO2 increase by 3. Pallor or cyanosis Hypoxic and Hypercapnic
10 mmHg from baseline if known 4. Anxiety or restlessness Unable to determine
5. Unable to speak in full sentences
Supplemental O2 of > 40% (5LPM) Intubation is not required
Use of terms such as suspected, likely, concern for, or probable (associated with a specific diagnosis that is being evaluated, monitored, or treated as if it exists) are acceptable and can be coded in the inpatient setting, when documented at the
time of discharge.
Thank you,
Morelia Wallace RN, BSN
CDI Specialist
Available via [place] text
Please use your independent medical judgment in providing your response.
== END 2024-04-04 12:56 | disposition home or self-care (01) | DRG 197 ==
LOC: IVU 21:23
PROVIDERS: Emergency Medicine; Internal Medicine Critical Care Medicine; Nurse Practitioner Gerontology; ADMITTING PHYSICIAN Hospitalist; ATTENDING PHYSICIAN Hospitalist; CONSULT PHYSICIAN Internal Medicine; EMERGENCY PHYSICIAN Student in an Organized Health Care Education/Training Program; FAMILY PHYSICIAN Nurse Practitioner; OTHER PHYSICIAN Internal Medicine Cardiovascular Disease
DX: J84.9 Interstitial pulmonary disease, unspecified (principal); I5A Non-ischemic myocardial injury (non-traumatic); J47.0 Bronchiectasis with acute lower respiratory infection; J45.901 Unspecified asthma with (acute) exacerbation; J44.1 Chronic obstructive pulmonary disease with (acute) exacerbation; I10 Essential (primary) hypertension; I08.0 Rheumatic disorders of both mitral and aortic valves; Z99.81 Dependence on supplemental oxygen; J92.0 Pleural plaque with presence of asbestos; J32.9 Chronic sinusitis, unspecified; E78.5 Hyperlipidemia, unspecified; R73.03 Prediabetes; R09.02 Hypoxemia; R06.89 Other abnormalities of breathing; I48.91 Unspecified atrial fibrillation; Z79.52 Long term (current) use of systemic steroids; Z79.899 Other long term (current) drug therapy; Z87.891 Personal history of nicotine dependence; Z85.46 Personal history of malignant neoplasm of prostate; Z86.19 Personal history of other infectious and parasitic diseases; Z88.0 Allergy status to penicillin; Z88.2 Allergy status to sulfonamides
CPT/HCPCS: 71046; 71275; 80048; 80053; 83036; 83605; 83735; 83880; 84145; 84443; 84484; 85025; 85027; 85610; 85730; 86803; 87040; 87070; 87205; 87449; 87811; 87899; 93005; 93306; 94640; 94669; 96374; 96375; 99285; Q9967

== ENCOUNTER 2024-05-21 14:45 | Outpatient (RCR) | payer BC, SELFPAY | END 2024-05-31 09:04 | disposition home or self-care (01) | LOC: PURB 14:45 | PROVIDERS: ATTENDING PHYSICIAN Internal Medicine Pulmonary Disease; FAMILY PHYSICIAN Internal Medicine | DX: J47.9 Bronchiectasis, uncomplicated (principal); Z87.891 Personal history of nicotine dependence; J32.9 Chronic sinusitis, unspecified | CPT/HCPCS: G0237; G0239 ==

== ENCOUNTER 2024-06-20 14:45 | Outpatient (RCR) | payer BC, SELFPAY | END 2024-07-01 10:05 | disposition home or self-care (01) | LOC: PURB 14:45 | PROVIDERS: ATTENDING PHYSICIAN Internal Medicine Pulmonary Disease; FAMILY PHYSICIAN Internal Medicine | DX: J47.9 Bronchiectasis, uncomplicated (principal) | CPT/HCPCS: G0239 ==

== ENCOUNTER 2024-09-09 19:11 | Emergency (ER) | payer BC, SELFPAY ==
[2024-09-09 19:14] VITALS: BP 166/75
[2024-09-09 19:37] LABS: % Basophils 0.7 % (0-2); % Eosinophils 2.7 % (0-6); % Immature Granulocytes 0.4 % (0-0.5); % Lymphocytes 18.3 % (20.5-51.1); % Monocytes 8.9 % (1.7-9.3); Absolute Basophils 0.1 10^3/uL (0-0.2); Absolute Eosinophils 0.3 10^3/uL (0-0.7); Absolute Immature Granulocytes 0.1 10^3/uL (0-0.05); Absolute Lymphocytes 2.1 10^3/uL (1.2-3.4); Absolute Neutrophils 7.9 10^3/uL (1.4-6.5); Hematocrit 38.1 % (39.0-52.0); Hemoglobin 11.3 g/dL (13.0-18.0); Mean Corp Hgb Conc. 29.7 g/dL (33.0-37.0); Mean Corpuscular Hgb 24.7 pg (27.0-31.0); Mean Corpuscular Volume 83.2 fL (80.0-94.0); Mean Platelet Volume 9.4 fL (7.4-10.4); Nucleated Red Blood Cells % 0 % (-); Platelet Count 370 10^3/uL (130-400); Red Blood Cell Count 4.58 10^6/uL (4.70-6.10); Red Cell Dist. Width 15.2 % (11.5-14.5); White Blood Cell Count 11.5 10^3/uL (4.8-10.8)
[2024-09-09 19:58] LABS: ALT (SGPT) 14 U/L (0-50); AST (SGOT) 23 U/L (17-59); Alkaline Phosphatase 61 U/L (38-126); Blood Urea Nitrogen 15 mg/dl (9-20); Chloride 93 mmol/L (98-107); Glucose 110 mg/dl (70-99); Potassium 4.1 mmol/L (3.5-5.1); Sodium 139 mmol/L (135-145); Total Bilirubin 0.2 mg/dl (0.2-1.3); Total Protein 8.2 g/dl (6.3-8.2); eGFR > 60.00
[2024-09-09 20:03] LABS: NT-proBNP 146 pg/ml; Troponin I < 0.012 ng/ml
[2024-09-09 20:09] LABS: Carbon Dioxide 33 mmol/L (22-30)
[2024-09-09 20:21] VITALS: BP 136/56
[2024-09-09 21:00] VITALS: BP 135/74
[2024-09-09 21:01] VITALS: BMI 23.8
[2024-09-09] MEDS: LASIX 60 MG IV (21:12)
[2024-09-09] MEDS: DECADRON 20 MG IV (21:13)
[2024-09-09] MEDS: DUONEB 3 ML INH (21:14)
--- NOTE | 2024-09-09 21:33 | ED.GENMED ---
History of Present Illness
General
Chief Complaint: Breathing Problem
Source: patient and spouse
Exam Limitations: none
Time Seen by Provider: 09/09/24 20:35
History of Present Illness
History of Present Illness:
This is a 74 year old male that comes in with c/o SOB. States that the past couple of days he has tejinder SOB. State that it started with some leg swelling a week ago. Patient had been placed on a Statin and he started with swelling of his feet and a
rash. Patient went to the PCP and was told that he had cellulitis and they stopped the statin. States that he was Clindamycin for 10 days and the rash is gone. States that he went back to see the PCP on Monday and his Lasix was increased to 60mg
from 40mg. States that he was not feeling well on Monday as he had a cough. States that the PCP told him then to come to the ER but he waited. States that today he was still not feeling well so he decided to come to the ER to r/o any Pneumonia.
States that he is SOB going up the steps. Denies any fever, chills, chest pain, abd pain, nausea, vomiting, diarrhea, headache, dizziness, urinary burning.
Past History
Past History
ED Past Medical History: Asthma, Cancer (Prostate cancer with Seeds placed), HTN and Other (Vertigl, Retinal detachment. Bronchiectasis, )
ED Past Surgical History: Other (cataracts, Lens implant Sinus surgery, Surgery for deviated septum. )
Social History
Tobacco: Non-smoker
Alcohol: Occasional
Personal:
Living: with family
Employment: Employed
Family History
Family History: Negative Early CAD
Review of Systems
Review of Systems
All Other Systems: ROS reviewed and negative except as documented in HPI and ROS
Constitutional: Reports no symptoms; Denies fever or chills
EENT: Reports no symptoms
Respiratory: Reports cough and trouble breathing
Cardiac: Reports no symptoms; Denies chest pain
ABD/GI: Reports no symptoms; Denies abdominal pain, nausea, vomiting or diarrhea
: Reports no symptoms; Denies dysuria, frequency or urgency
Musculoskeletal: Reports no symptoms
Skin: Reports no symptoms
Neurological: Reports no symptoms; Denies dizzy or headache
Psychiatric: Reports no symptoms
Phy Exam
General Physical Exam
General Presentation: no apparent distress
General age: appears stated age
General Skin: warm and dry
General Habitus: elderly
General Mental: alert
General Hydration: appears well hydrated
ENT Exam
ENT Exam: TM's normal, pharynx normal and neck supple
Eye Exam
Eye Exam: EOMI
Cardiovascular Exam
Cardiovascular Exam: regular rate/rhythm and normal peripheral pulses
Pulmonary Exam
Pulmonary Exam: chest non tender, no rhonchi, no cough and other (Exp wheezing throughout with crackles throughout noted)
Gastrointestinal Exam
Gastrointestinal Exam: normal bowel sounds, non tender, soft, no organomegaly, no pulsatile mass and non distended
Musculoskeletal Exam
Musculoskeletal Exam: full ROM and edema (Pitting edema of the lower legs +2)
Skin Exam
Skin Exam: normal color, warm/dry, no rash and no petechia
Psychiatric Exam
Psychiatric Exam: normal mood/affect
Scores
Heart Failure Risk
Heart Failure Risk Score: Yes
History of Stroke or TIA: No
History of intubation for respiratory distress: No
Heart rate on ED arrival >/= 110: No
SaO2 <90% on arrival on room air: Yes
HR >/=110 during 3min walk test (or too ill to perform test): Yes
ECG has acute ischemic changes: No
Urea >/=12mmol/L (BUN 33.6mg/dL): No
Serum CO2>/=35mmol/L: No
Troponin I or T elevated to [place] Level (0.4mg/dL): No
NT-proBNP >/=5,000ng/L (5,000pg/ml): No
HF Risk Score: 3
Admission Status: HIGH RISK 15.9% Consider SNF treatment or admission to hospital
Course
Orders/Labs/Results
Orders:
Orders
09/09/24 19:17
Electrocardiogram (*1) Urgent
Reason for Study: Shortness of Breath
CR Chest - 2 Views Urgent
Comment:
Reason For Exam: SOB
09/09/24 19:18
EKG- Treatment ONCE
09/09/24 19:29
Complete Blood Count/With Diff Urgent
Comprehensive Metabolic Panel Urgent
NT-proBNP Urgent
Troponin I Urgent
09/09/24 20:53
Dexamethasone Sod Phosphate [Decadron] 20 mg IV NOW STA
Furosemide [Lasix] 60 mg IV NOW STA
Ipratropium/Albuterol Sulfate [Duoneb] 3 ml INH R NOW ONE
Abnormal Lab Results
09/09/24
19:29
WBC 11.5 H 10^3/uL
(4.8-10.8)
RBC 4.58 L 10^6/uL
(4.70-6.10)
Hgb 11.3 L g/dL
(13.0-18.0)
Hct 38.1 L %
(39.0-52.0)
MCH 24.7 L pg
(27.0-31.0)
MCHC 29.7 L g/dL
(33.0-37.0)
RDW 15.2 H %
(11.5-14.5)
Abs Immat Gran (auto) 0.1 H 10^3/uL
(0-0.05)
Absolute Neuts (auto) 7.9 H 10^3/uL
(1.4-6.5)
Absolute Monos (auto) 1.0 H 10^3/uL
(0.1-0.6)
Lymphocytes % 18.3 L %
(20.5-51.1)
Chloride 93 L mmol/L
(98-107)
Carbon Dioxide 33 H mmol/L
(22-30)
Glucose 110 H mg/dl
(70-99)
09/09/24 19:29
09/09/24 19:29
WBC very slightly elevated. H/H slightly low. Chloride low. Carbon dioxide slightly elevated. hyperglycemia. Troponin <0.012, Pro-BNP 146
Vital Signs
Initial and Last Documented VS:
Initial Vital Signs
Temp Pulse Resp BP Pulse Ox
98.2 F 98 22 166/75 89
09/09/24 19:14 09/09/24 19:14 09/09/24 19:14 09/09/24 19:14 09/09/24 19:14
Last Documented Vital Signs
Temp Pulse Resp BP Pulse Ox
98.2 F 98 22 136/56 89
09/09/24 19:14 09/09/24 19:14 09/09/24 19:14 09/09/24 20:21 09/09/24 19:14
MDM/Problems Addressed
Differential Diagnosis Includes:
PNA, CHF,
MDM/Problems Addressed:
This is a 74 year old male that comes in with c/o SOB and cough. States that he has also had increased leg swelling.
Will get labs and chest x-ray,
Discussed, with patient and chest x-ray findings. Will give patient a Duo neb here and steroids and also give one dose of IV Lasix here. Patient does take Zithromax 250mg for sinus issues. Will hold off on any further antibiotic coverage.
Patient to return with any increased SOB or any other concerns.
Chronic conditions affecting care:
Lung disease
Acute Exacerbation and/or Progression of Chronic Illness:
Lung disease
*Radiology
Radiology exam reviewed: radiology read reviewed (Chest-Probable pulmonary vascular congestion. Cannot rule out superimposed pneumonitis and/or underlying chronic interstitial lung disease. )
*Pulse Oximetry
Patient hypoxic: no
*EKG
Interpreted by ED Provider?: Yes
Heart Rate: 94
Rate: normal
[place]: right axis deviation
Interval: normal interval
QRS Pattern: normal QRS
*Leisure Studies Professor Interpretation
Rate: Leisure Studies Professor- N/A
*Critical Care Note
Total Time (30-74mins, 75-104mins- exclusive of procedures): Not Applicable
ED Attending Note
-
Portions of this chart may have been created with voice recognition software.� Occasional wrong word or��sound alike� substitutions may have occurred due to the inherent limitations of voice recognition software.
Discharge Plan
Departure
Disposition: Home (Routine Discharge)
Date of Disposition: 09/09/24
Time of Disposition: 21:51
Patient with high blood pressure during this ER visit?: Yes
Condition: Good
Covid-19: Not Applicable
Discharge Problem:
SOB (shortness of breath)
Instructions: Shortness of Breath (Dyspnea) (DC), BLOOD PRESSURE
Prescriptions:
No Action
montelukast 10 MG tablet
10 mg PO QPM
multivitamin with folic acid [Tab-A-Sabine] 1 TABLET tablet
1 tab PO HS
albuterol sulfate 2.5 mg /3 mL (0.083 %) Solution For Nebulization
2.5 mg INHALATION BID
cetirizine 10 mg Tablet
10 mg PO DAILY
azithromycin 250 mg Tablet
250 mg PO MOWEFR
calcium acetate(phosphat bind) 667 mg Tablet
667 mg PO DAILY
ascorbic acid (vitamin C) [Vitamin C] 250 mg Tablet
250 mg PO DAILY
mometasone 50 mcg/actuation [place],Non-Aerosol
1 spray INTRANASAL BID
hydrochlorothiazide 25 mg Tablet
25 mg PO DAILY
cholecalciferol (vitamin D3) 125 mcg (5,000 unit) Capsule
125 mcg PO DAILY
omega-3 acid ethyl esters [Lovaza] 1 gram Capsule
1 cap PO DAILY
fluticasone propion-salmeterol [Advair HFA] 230-21 mcg/actuation Hfa Aerosol Inhaler
2 puff INHALATION BID
tobramycin
1 spray intranasal BID
Rx Instructions:
Nasal
Eliquis 5 mg Tablet
5 mg PO BID Qty: 30 0RF
benzonatate 100 mg Capsule
200 mg PO TIDPRN PRN (Reason: coughing) Qty: 30 0RF
metoprolol succinate 25 mg Tablet Extended Release 24 Hr
25 mg PO BID Qty: 60 0RF
prednisone 10 mg Tablet
10 mg PO DAILY Qty: 0 0RF
Rx Instructions:
Restart when you finish taper
valsartan 320 mg Tablet
160 mg PO DAILY Qty: 0 0RF
omeprazole 20 mg Tablet,Delayed Release (Dr/Ec)
20 mg PO DAILY Qty: 0 0RF
guaifenesin 600 mg Tablet Extended Release 12hr
1,200 mg PO Q12 Qty: 60 0RF
prednisone 10 mg Tablet
10 mg PO DIRECTED Qty: 15 0RF
Rx Instructions:
30mgX3 days,20mgX3 days then 10 mg
Additional Instructions:
As discussed, your chest x-ray shows probable pulmonary vascular congestion. It can't be ruled out that there is not any Pneumonitis or underlying lung disease. You have been given a Duo neb here and a dose of IV steroids. Also a Dose of IV Lasix
to help pull off some fluid. Please continue with your Lasix as prescribed daily. Please eat a banana daily as the Lasix will decrease your potassium level. Follow up with the family doctor for recheck. IF YOU HAVE CHEST PAIN, INCREASED SHORTNESS OF
BREATH, OR YOU HAVE ANY OTHER CONCERNS PLEASE RETURN TO THE EMERGENCY ROOM
Interventions
Interventions:
*General Assessment Last Done: 12/09/24 19:14
ED- Fall Risk Assessment Last Done: 09/09/24 21:01
*ED COVID-19 Vaccine History Last Done: 09/09/24 21:01
ED- Cardiac Assessment Last Done: 09/09/24 21:01
ED- Pulmonary Assessment Last Done: 09/09/24 20:48
Discharge Date and Time
Print Language: MONGOLIAN
[2024-09-09 21:47] VITALS: BP 139/71
== END 2024-09-09 22:14 | disposition home or self-care (01) ==
LOC: EMR 19:11
PROVIDERS: Student in an Organized Health Care Education/Training Program; EMERGENCY PHYSICIAN Emergency Medicine; FAMILY PHYSICIAN Internal Medicine
DX: R06.02 Shortness of breath (principal); R60.0 Localized edema; J45.909 Unspecified asthma, uncomplicated; I10 Essential (primary) hypertension; Z85.46 Personal history of malignant neoplasm of prostate; Z79.899 Other long term (current) drug therapy
CPT/HCPCS: 94640; 96374; 96375; 99284; 71046; 80053; 83880; 84484; 85025; 93005

== ENCOUNTER 2025-05-09 18:34 | Emergency (ER) | payer BC, SELFPAY ==
[2025-05-09 18:37] VITALS: BP 133/91
[2025-05-09 19:19] VITALS: BP 157/73
[2025-05-09 19:27] VITALS: BMI 25.9
--- NOTE | 2025-05-09 19:54 | ED.GENMED ---
History of Present Illness
General
Chief Complaint: Nose Bleed
Time Seen by Provider: 05/09/25 19:43
History of Present Illness
History of Present Illness:
75-year-old male history of bronchiectasis on 3 L nasal cannula chronically, atrial fibrillation on Eliquis, hypertension presenting with epistaxis. Patient states that epistaxis started from right nostril around 330 and then was bilaterally.
Patient states that he applied pressure no improvement prompting ED evaluation. Patient states that epistaxis resolved while in the waiting room. Patient denies chest pain or shortness of breath.
Past History
Past History
ED Past Medical History: Asthma, Cancer (Prostate cancer with Seeds placed), HTN and Other (Vertigl, Retinal detachment. Bronchiectasis, )
ED Past Surgical History: Other (cataracts, Lens implant Sinus surgery, Surgery for deviated septum. )
Social History
Tobacco: Non-smoker
Alcohol: Occasional
Personal:
Living: with family
Employment: Employed
Family History
Family History: Negative Early CAD
Phy Exam
Physical Exam
Physical Exam:
General: Alert, no acute distress
Head: NCAT
Eyes: clear conjunctiva
Neck: supple
ENT: Dried blood in right nostril. No active bleeding. No bleeding in posterior oropharynx
Cardiac: regular rate and rhythm, no murmur
Lungs: Diffuse crackles bilaterally. speaking full unlabored sentences. No respiratory distress. On 3 L nasal cannula which is patient's baseline
Skin: warm, dry
Neuro: Alert
Course
Vital Signs
Initial and Last Documented VS:
Initial Vital Signs
Temp Pulse Resp BP Pulse Ox
98.2 F 102 20 133/91 92
05/09/25 18:37 05/09/25 18:37 05/09/25 18:37 05/09/25 18:37 05/09/25 18:37
Last Documented Vital Signs
Temp Pulse Resp BP Pulse Ox
98.2 F 102 20 161/81 99
05/09/25 18:37 05/09/25 18:37 05/09/25 18:37 05/09/25 20:00 05/09/25 20:00
MDM/Problems Addressed
MDM/Problems Addressed:
75-year-old male history of bronchiectasis on 3 L nasal cannula chronically, atrial fibrillation on Eliquis presenting with epistaxis which has since resolved. Dried blood in right nostril but no active bleeding. No active bleeding in posterior
oropharynx. Patient is on baseline 3 L nasal cannula. Discussed with patient at bedside. Given no active bleeding at this time, stable for discharge with ENT follow-up. Advised to use Vaseline at edge of nose to make nostril more moist. Advise
not to blow nose. Advised to follow-up with ENT next week for possible cautery. Discussed return precautions. Patient expressed verbal understanding. Stable for discharge
*Pulse Oximetry
SaO2: 92
Nasal Cannula flow liters per minute: 3
Patient hypoxic: no
*Critical Care Note
Total Time (30-74mins, 75-104mins- exclusive of procedures): Not Applicable
ED Attending Note
-
Portions of this chart may have been created with voice recognition software.� Occasional wrong word or��sound alike� substitutions may have occurred due to the inherent limitations of voice recognition software.
Discharge Plan
Departure
Patient Disposition: Home (Routine Discharge)
Date of Disposition: 05/09/25
Time of Disposition: 20:02
Patient with high blood pressure during this ER visit?: Yes
Discharge Problem:
Epistaxis
Instructions: Nosebleeds (DC), BLOOD PRESSURE
Prescriptions:
No Action
montelukast 10 MG tablet
10 mg PO QPM
multivitamin with folic acid [Tab-A-Sabine] 1 TABLET tablet
1 tab PO HS
albuterol sulfate 2.5 mg /3 mL (0.083 %) Solution For Nebulization
2.5 mg INHALATION BID
cetirizine 10 mg Tablet
10 mg PO DAILY
azithromycin 250 mg Tablet
250 mg PO MOWEFR
calcium acetate(phosphat bind) 667 mg Tablet
667 mg PO DAILY
ascorbic acid (vitamin C) [Vitamin C] 250 mg Tablet
250 mg PO DAILY
mometasone 50 mcg/actuation [place],Non-Aerosol
1 spray INTRANASAL BID
hydrochlorothiazide 25 mg Tablet
25 mg PO DAILY
cholecalciferol (vitamin D3) 125 mcg (5,000 unit) Capsule
125 mcg PO DAILY
omega-3 acid ethyl esters [Lovaza] 1 gram Capsule
1 cap PO DAILY
fluticasone propion-salmeterol [Advair HFA] 230-21 mcg/actuation Hfa Aerosol Inhaler
2 puff INHALATION BID
tobramycin
1 spray intranasal BID
Rx Instructions:
Nasal
Eliquis 5 mg Tablet
5 mg PO BID Qty: 30 0RF
benzonatate 100 mg Capsule
200 mg PO TIDPRN PRN (Reason: coughing) Qty: 30 0RF
metoprolol succinate 25 mg Tablet Extended Release 24 Hr
25 mg PO BID Qty: 60 0RF
prednisone 10 mg Tablet
10 mg PO DAILY Qty: 0 0RF
Rx Instructions:
Restart when you finish taper
valsartan 320 mg Tablet
160 mg PO DAILY Qty: 0 0RF
omeprazole 20 mg Tablet,Delayed Release (Dr/Ec)
20 mg PO DAILY Qty: 0 0RF
guaifenesin 600 mg Tablet Extended Release 12hr
1,200 mg PO Q12 Qty: 60 0RF
prednisone 10 mg Tablet
10 mg PO DIRECTED Qty: 15 0RF
Rx Instructions:
30mgX3 days,20mgX3 days then 10 mg
Referrals:
Deng Dodge MD [Active, Otology]
UNKNOWN - PT DOES,NOT KNOW [Unknown Provider]
Activity Restrictions/Additional Instructions:
Do not blow your nose as it can dislodge the clot that has formed that is stopping the bleeding
Follow up with ENT next week
If bleeding reoccurs, remove oxygen and place in your mouth. Hold constant pressure to nose for 20-30 minutes without letting go. If still bleeding, return to the emergency department for possible packing
Continue taking eliquis as prescribed
Return to the emergency department for new/worsening symptoms
Interventions
Interventions:
*Risk Screen - Suicide Last Done: 05/09/25 18:37
*General Assessment Last Done: 05/09/25 18:37
*Neglect/Abuse Screening Last Done: 05/09/25 20:14
*ED- Fall Risk Assessment Last Done: 05/09/25 20:14
*ED COVID-19 Vaccine History Last Done: 05/09/25 20:14
*Nursing Disposition Last Done: 05/09/25 20:14
ED-EENT Assessment Last Done: 05/09/25 19:27
Discharge Date and Time
Discharge Date/Time: 05/09/25 20:14
Print Language: AUSTRIAN
[2025-05-09 20:00] VITALS: BP 161/81
== END 2025-05-09 20:14 | disposition home or self-care (01) ==
LOC: EMR 18:34
PROVIDERS: EMERGENCY PHYSICIAN Emergency Medicine; FAMILY PHYSICIAN Internal Medicine
DX: R04.0 Epistaxis (principal); I10 Essential (primary) hypertension; I48.91 Unspecified atrial fibrillation; Z79.01 Long term (current) use of anticoagulants
CPT/HCPCS: 99282